=== PATIENT | male | born 1950 | race Caucasian/White ===

== ENCOUNTER 2021-10-07 19:10 | Inpatient (IN) | payer MEDICARE, MEDICAID, SELFPAY ==
[2021-10-07] VITALS (7 sets, daily range): BP systolic 92–114; BP diastolic 58–76; PULSE 98–121; RESP 18–25; TEMP 38.8–41.4; O2SAT 94–98; BMI 34.7
--- NOTE | ~2021-10-07 | CT_ITS ---
EXAMINATION: CT HEAD WITHOUT CONTRAST CLINICAL INFORMATION: Dysphagia. COMPARISON: None available. TECHNIQUE: Contiguous axial imaging was performed from the skull base to vertex without intravenous administration of contrast. This CT examination was performed using dose optimization techniques as appropriate, variously including the following: *Automated exposure control. *Adjustment of mA and/or kV according to patient size (this includes techniques or standardized protocols for targeted exams where dose is matched to indication/reason for exam; i.e. extremities or head). *Use of iterative reconstruction technique. DLP: 925 mGy-cm FINDINGS: Chronic encephalomalacia predominantly involving the right temporal lobe and right insula/lentiform nucleus. There is also a degree of gliosis of the deep white matter of the right frontoparietal lobes. There is a streak of hyperattenuation along the medial margin of this encephalomalacia suggestive of chronic hemosiderin staining. There is a 0.5 cm calcification within the right aspect of the krissy. Wallerian degeneration of the right cerebral peduncle and right ventral krissy. There is no evidence of acute intracranial hemorrhage or edematous territorial infarction. Otherwise, scattered hypoattenuation in the periventricular and deep white matter are consistent with mild to moderate underlying microangiopathy. No additional loss of hobson-white matter differentiation. Ex vacuo dilatation of the right lateral ventricle. Otherwise, proportional prominence of the ventricles and sulcal spaces. No evidence for obstructive hydrocephalus. No abnormal mass effect or midline shift. No extra-axial fluid collections. Calcific atherosclerotic disease of the intracranial internal carotid arteries. No acute soft tissue or osseous abnormalities. Persistent metopic suture. Mild mucosal thickening of the paranasal sinuses. Small mucous retention cyst within the right maxillary sinus. The mastoid air cells and middle ear cavities remain well aerated. CT/CT head/brain wo con IMPRESSION: 1. No evidence of acute intracranial hemorrhage or edematous territorial infarction. 2. Chronic encephalomalacia of a large portion of the right MCA territory (most notably the right temporal lobe and insula with gliosis of the deep white matter of the right frontoparietal lobes). Mild to moderate underlying microangiopathy.
--- NOTE | ~2021-10-07 | US_ITS ---
EXAMINATION: ULTRASOUND LOWER EXTREMITY NONVASCULAR CLINICAL INFORMATION: Left thigh cellulitis. Rule out abscess. COMPARISON: None TECHNIQUE: Grayscale and color imaging of the soft tissues of the left medial thigh using a linear transducer FINDINGS: There is subcutaneous edema. No focal fluid collection or mass is seen. US/US extremity nonvascular IMPRESSION: No focal fluid collection suggestive of abscess. Diffuse subcutaneous edema.
--- NOTE | ~2021-10-07 | US_ITS ---
EXAMINATION: US ABDOMEN LIMITED CLINICAL INFORMATION: Elevated bilirubin with high fever. COMPARISON: None TECHNIQUE: Real-time imaging of the right upper quadrant abdominal viscera. FINDINGS: PANCREAS: The visualized portions of the pancreas are unremarkable but a large portion of the gland is obscured by bowel gas. LIVER: The liver is normal in size. The liver contour is normal. There is mildly diffuse increased liver parenchymal echogenicity raising a question of hepatic steatosis. No focal hepatic lesion. There is no intrahepatic biliary duct dilatation seen. GALLBLADDER: The gallbladder is filled with shadowing stones and echogenic bile. No pericholecystic fluid collections were seen. Ballesteros's sign was negative. COMMON BILE DUCT: Could not be visualized. RIGHT KIDNEY: Not optimally seen. No hydronephrosis. No renal calculi or focal parenchymal lesions. The kidney measures 12.3 cm in maximum dimension. FREE FLUID: None. US/US abdomen limited IMPRESSION: 1. Echogenic liver, most likely hepatic steatosis. 2. Cholelithiasis without cholecystitis.
--- NOTE | ~2021-10-07 | XR_ITS ---
EXAMINATION: XR CHEST CLINICAL INFORMATION: Sepsis COMPARISON: None TECHNIQUE: Frontal view of the chest was obtained. FINDINGS: There is mild cardiac enlargement. There is marked some minimal upper zone prominence suggesting possible mild pulmonary vascular congestion. No focal infiltrates, effusions or lung masses are seen. XR/XR chest 1V IMPRESSION: Mild cardiomegaly with question of mild pulmonary vascular congestion.
--- NOTE | 2021-10-07 19:13 | ECG_ITS ---
Test Reason : ?septic Blood Pressure : / mmHG Vent. Rate : 107 BPM Atrial Rate : 000 BPM P-R Int : 000 ms QRS Dur : 084 ms QT Int : 338 ms P-R-T Axes : 000 006 008 degrees QTc Int : 451 ms Atrial fibrillation with rapid ventricular response Nonspecific ST and T wave abnormality Abnormal ECG No previous ECGs available Referred By: Kusum Parker Electronically Signed By:DENNIS NEWTON
[2021-10-07 19:17] LABS: Glucose, Whole Blood 150 mg/dL (60-115)
--- NOTE | 2021-10-07 19:24 | ED_ITS ---
HPI - General Adult General Chief complaint: Altered Mental Status Stated complaint: lethargy Time Seen by Provider: 10/07/21 19:53 Source: patient, EMS and RN notes reviewed Mode of arrival: EMS Limitations: altered mental status History of Present Illness HPI narrative: 70-year-old male came in from custodial for evaluation of being lethargic and high fever. Patient is a resident of custodial brought in for left thigh area of cellulitis with high fever with patient being lethargic, patient unable to prov xochitl history. Past Medical history was obtained from custodial records vascular dementia with behavior disturbance, bipolar, chronic atrial fibrillation, hypertension, congestive heart failure, dyslipidemia, right MCA stroke in 2013, depression with psychosis, anxiety, history of ETOH abuse. Related Data Home Medications Medication Instructions Recorded Confirmed acetaminophen 500 mg tablet 1,000 mg PO BID 10/07/21 10/07/21 dabigatran etexilate 150 mg 150 mg PO BID 10/07/21 10/07/21 capsule (Pradaxa) famotidine 20 mg tablet 20 mg PO BEDTIME 10/07/21 10/07/21 gabapentin 300 mg capsule 300 mg PO TID 10/07/21 10/07/21 lithium carbonate 300 mg capsule 300 mg PO BEDTIME 10/07/21 10/07/21 lithium carbonate 300 mg capsule 600 mg PO DAILY 10/07/21 10/07/21 lorazepam 0.5 mg tablet 1 tab PO BID 10/07/21 10/07/21 metoprolol succinate 50 mg 50 mg PO DAILY 10/07/21 10/07/21 tablet,extended release 24 hr olanzapine 10 mg tablet 10 mg PO BEDTIME 10/07/21 10/07/21 polyethylene glycol 3350 17 17 g PO BID 10/07/21 10/07/21 gram/dose oral powder (Miralax) sennosides 8.6 mg tablet (senna) 17.2 mg PO BEDTIME 10/07/21 10/07/21 simvastatin 5 mg tablet 5 mg PO BEDTIME 10/07/21 10/07/21 Allergies Allergy/AdvReac Type Severity Reaction Status Date / Time No Known Allergies Allergy Verified 10/07/21 19:13 Review of Systems Review of Systems: Yes Unobtainable due to mental condition (Advanced dementia) FOR[facility]LY [facility] Past Medical History Source: old records reviewed Social History Social History Advance Directives: No Advance Directives Information Provided: No Physical Exam Vital Signs: Vital Signs: Last Vital Signs Temp 101.8 F H 10/07/21 22:32 Pulse 104 H 10/07/21 22:32 Resp 22 H 10/07/21 22:32 BP 111/60 10/07/21 22:32 Pulse Ox 96 10/07/21 22:32 BMI result Body Mass Index 34.7 Vital signs have been reviewed as appeared to be correct. Blood pressure normal. Heart rate normal. Respiration rate normal. Temperature normal. Oxygen saturation normal. Appearance: Lethargic, easily arousable, unable to answer simple questions. Head: Normal external exam. Normocephalic. Atraumatic. No Juan signs noted. No raccoon eyes noted Eyes: PERRLA. EOMI. Conjunctiva and sclera normal. Eyelids normal. ENT: TM's Normal. Pharynx normal. Uvula midline. Moist mucous membranes. No trismus noted. No drooling noted. No muffled voice noted. Neck: Normal inspection. Neck supple. FROM. No adenopathy. Thyroid Normal. No meningeal signs. No neck mass noted. CVS: Normal heart rate and rhythm. Heart sound normal. No murmurs noted. Pulses normal throughout. Respiratory: No respiratory distress. Painless inspiration. Breath sounds normal. No wheezes/rales/rhonchi noted. Chest nontender. No accessory muscle usage noted or decreased air movement noted. Abdomen: Soft and nontender. Bowel sounds normal in all 4 quadrants. No distention noted. No organomegaly noted. No visible injury noted. Back: No CVA tenderness. Full range of motion noted. Skin: Skin warm and dry. Normal skin color. Normal skin turgor. No rashes/lesions/lacerations noted. Extremities: Area of 20 x 15 cm of hotness, redness, erythematous on the inner aspect of the left thigh, no abscess or fluctuation. Neuro: Lethargic, incoherent. Cranial nerve exam: II-XII are grossly intact No motor deficit. No sensory deficit. Reflexes normal. Course Course Course Narrative: Assessment and plan. 70-year-old male came in for left thigh cellulitis with SIRS criteria and hyperpyrexia, because patient's lactic acid above to patient enrolled into severe sepsis. patient received IV antibiotic and 30 cc/kg based on ideal body weight. Improvement of body temperature. With slight elevation of bilirubin will obtain gallbladder ultrasound, patient however do not have right upper quadrant tenderness. Reevaluation(s) Reevaluation #1: Reassessment: Patient is less febrile temperature and lactic acid are trending down. Patient is more coherent. Ultrasound of the abdomen and pelvis showing no acute cholecystitis. Time: 23:08 Medical Decision Making Medical Records Medical records reviewed: Yes I reviewed the patient's medical records. Lab Data Lab results reviewed: Yes I reviewed the patient's lab results. Result diagrams: 10/07/21 19:28 10/07/21 19:28 Labs: Lab Results 10/07/21 10/07/21 10/07/21 Range/Units 19:14 19:28 19:28 WBC 17.0 H (4.8-10.8) X10*3/uL RBC 5.35 (4.60-5.80) X10*6/uL Hgb 16.6 (14.0-18.0) g/dl Hct 49.9 (42.0-52.0) % MCV 93.3 (80.0-98.0) fL MCH 31.0 (27.0-33.0) pg MCHC 33.3 (31.0-36.0) g/dl RDW 12.4 (11.0-16.0) % Plt Count 153 L (160-400) X10*3/uL MPV 9.8 (9.4-12.4) fL Immature Gran % (Auto) 0.9 H (0.0-0.4) % Neut % (Auto) 90.4 H (45-73) % Lymph % (Auto) 3.2 L (20-40) % [place] % (Auto) 5.4 (2-11) % Eos % (Auto) 0.0 (0-4) % Baso % (Auto) 0.1 (0-2) % Lymph # (Auto) 0.6 L (1.2-4.9) X10*3/uL [place] # (Auto) 0.9 (0.1-1.2) X10*3/uL Eos # (Auto) 0.0 (0.0-0.4) X10*3/uL Baso # (Auto) 0.0 (0.0-0.2) X10*3/uL Abs Immat Gran (auto) 0.15 H (0.00-0.03) X10*3/uL Absolute Neuts (auto) 15.4 H (2.0-8.3) x10*3/uL Absolute Nucleated RBC 0.000 (0.0-0.012) X10*3/uL Nucleated RBC % (auto) 0.0 (0.0-0.2) /100WBC PT (9.9-13.0) SEC INR (0.9-1.1) APTT (24.1-38.0) SEC Sodium 142 (135-145) mmol/L Potassium 4.4 (3.3-5.1) mmol/L Chloride 105 (96-108) mmol/L Carbon Dioxide 25 (22-29) mmol/L Anion Gap 16 (12-20) BUN 18 H (9-16) mg/dL Creatinine 1.11 (0.5-1.4) mg/dL Estim Creat Clear Calc 84.8 Estimated GFR > 60 POC Glucose 150 H (60-115) mg/dL Random Glucose 165 H (60-115) mg/dL Lactic Acid (0.5-2.0) mmol/L Calcium 9.8 (8.4-10.2) mg/dL Total Bilirubin 1.1 H (0.0-1.0) mg/dL Direct Bilirubin 0.6 H (0.0-0.5) mg/dL AST 12 (5-37) U/L ALT 12 (0-40) U/L Alkaline Phosphatase 74 (39-117) U/L Troponin I High Sens (<3.5-35.0) ng/L B-Natriuretic Peptide (<100) pg/mL Total Protein 7.7 (6.5-8.0) g/dL Albumin 4.2 (3.5-5.0) g/dL Lipase 22 (8-78) U/L Urine Color Urine Appearance Urine pH (5.0-8.0) Ur Specific [place] (1.005-1.025) Urine Protein (NEG-TRACE) MG/DL Urine Glucose (UA) (NEG) MG/DL Urine Ketones (NEG) MG/DL Urine Blood (NEG) Urine Nitrite (NEG) Ur Leukocyte Esterase (NEG) Urine RBC (0) /HPF Urine WBC (0-4) /HPF Ur Squamous Epith Cells /LPF Urine Bacteria /LPF Urine Mucus /LPF COVID-19 ([facility]) (Negative) COVID-19 Clin Com 10/07/21 10/07/21 10/07/21 Range/Units 19:28 19:28 19:28 WBC (4.8-10.8) X10*3/uL RBC (4.60-5.80) X10*6/uL Hgb (14.0-18.0) g/dl Hct (42.0-52.0) % MCV (80.0-98.0) fL MCH (27.0-33.0) pg MCHC (31.0-36.0) g/dl RDW (11.0-16.0) % Plt Count (160-400) X10*3/uL MPV (9.4-12.4) fL Immature Gran % (Auto) (0.0-0.4) % Neut % (Auto) (45-73) % Lymph % (Auto) (20-40) % [place] % (Auto) (2-11) % Eos % (Auto) (0-4) % Baso % (Auto) (0-2) % Lymph # (Auto) (1.2-4.9) X10*3/uL [place] # (Auto) (0.1-1.2) X10*3/uL Eos # (Auto) (0.0-0.4) X10*3/uL Baso # (Auto) (0.0-0.2) X10*3/uL Abs Immat Gran (auto) (0.00-0.03) X10*3/uL Absolute Neuts (auto) (2.0-8.3) x10*3/uL Absolute Nucleated RBC (0.0-0.012) X10*3/uL Nucleated RBC % (auto) (0.0-0.2) /100WBC PT (9.9-13.0) SEC INR (0.9-1.1) APTT (24.1-38.0) SEC Sodium (135-145) mmol/L Potassium (3.3-5.1) mmol/L Chloride (96-108) mmol/L Carbon Dioxide (22-29) mmol/L Anion Gap (12-20) BUN (9-16) mg/dL Creatinine (0.5-1.4) mg/dL Estim Creat Clear Calc Estimated GFR POC Glucose (60-115) mg/dL Random Glucose (60-115) mg/dL Lactic Acid 3.3 H* (0.5-2.0) mmol/L Calcium (8.4-10.2) mg/dL Total Bilirubin (0.0-1.0) mg/dL Direct Bilirubin (0.0-0.5) mg/dL AST (5-37) U/L ALT (0-40) U/L Alkaline Phosphatase (39-117) U/L Troponin I High Sens 8.0 (<3.5-35.0) ng/L B-Natriuretic Peptide 165 H (<100) pg/mL Total Protein (6.5-8.0) g/dL Albumin (3.5-5.0) g/dL Lipase (8-78) U/L Urine Color Urine Appearance Urine pH (5.0-8.0) Ur Specific [place] (1.005-1.025) Urine Protein (NEG-TRACE) MG/DL Urine Glucose (UA) (NEG) MG/DL Urine Ketones (NEG) MG/DL Urine Blood (NEG) Urine Nitrite (NEG) Ur Leukocyte Esterase (NEG) Urine RBC (0) /HPF Urine WBC (0-4) /HPF Ur Squamous Epith Cells /LPF Urine Bacteria /LPF Urine Mucus /LPF COVID-19 ([facility]) Negative (Negative) COVID-19 Clin Com See Note 10/07/21 10/07/21 Range/Units 19:28 19:50 WBC (4.8-10.8) X10*3/uL RBC (4.60-5.80) X10*6/uL Hgb (14.0-18.0) g/dl Hct (42.0-52.0) % MCV (80.0-98.0) fL MCH (27.0-33.0) pg MCHC (31.0-36.0) g/dl RDW (11.0-16.0) % Plt Count (160-400) X10*3/uL MPV (9.4-12.4) fL Immature Gran % (Auto) (0.0-0.4) % Neut % (Auto) (45-73) % Lymph % (Auto) (20-40) % [place] % (Auto) (2-11) % Eos % (Auto) (0-4) % Baso % (Auto) (0-2) % Lymph # (Auto) (1.2-4.9) X10*3/uL [place] # (Auto) (0.1-1.2) X10*3/uL Eos # (Auto) (0.0-0.4) X10*3/uL Baso # (Auto) (0.0-0.2) X10*3/uL Abs Immat Gran (auto) (0.00-0.03) X10*3/uL Absolute Neuts (auto) (2.0-8.3) x10*3/uL Absolute Nucleated RBC (0.0-0.012) X10*3/uL Nucleated RBC % (auto) (0.0-0.2) /100WBC PT 17.8 H (9.9-13.0) SEC INR 1.6 H (0.9-1.1) APTT 42.1 H (24.1-38.0) SEC Sodium (135-145) mmol/L Potassium (3.3-5.1) mmol/L Chloride (96-108) mmol/L Carbon Dioxide (22-29) mmol/L Anion Gap (12-20) BUN (9-16) mg/dL Creatinine (0.5-1.4) mg/dL Estim Creat Clear Calc Estimated GFR POC Glucose (60-115) mg/dL Random Glucose (60-115) mg/dL Lactic Acid (0.5-2.0) mmol/L Calcium (8.4-10.2) mg/dL Total Bilirubin (0.0-1.0) mg/dL Direct Bilirubin (0.0-0.5) mg/dL AST (5-37) U/L ALT (0-40) U/L Alkaline Phosphatase (39-117) U/L Troponin I High Sens (<3.5-35.0) ng/L B-Natriuretic Peptide (<100) pg/mL Total Protein (6.5-8.0) g/dL Albumin (3.5-5.0) g/dL Lipase (8-78) U/L Urine Color DK YELLOW Urine Appearance CLEAR Urine pH 6.0 (5.0-8.0) Ur Specific [place] 1.025 (1.005-1.025) Urine Protein TRACE (NEG-TRACE) MG/DL Urine Glucose (UA) NEG (NEG) MG/DL Urine Ketones 15 (NEG) MG/DL Urine Blood 2+ H (NEG) Urine Nitrite NEG (NEG) Ur Leukocyte Esterase NEG (NEG) Urine RBC 5-9 H (0) /HPF Urine WBC 0-2 (0-4) /HPF Ur Squamous Epith Cells NONE /LPF Urine Bacteria TRACE /LPF Urine Mucus 1+ /LPF COVID-19 ([facility]) (Negative) COVID-19 Clin Com Imaging Data Chest x-ray: Attestation: I personally reviewed and interpreted this imaging study as follows: Radiologist's impression: Mild cardiomegaly with question of mild pulmonary vascular congestion. ? Gallbladder ultrasound: Attestation: I personally reviewed and interpreted this imaging study as follows: Radiologist's impression: 1. Echogenic liver, most likely hepatic st eatosis. ?2. Cholelithiasis without cholecystitis. ECG Data Attestation: I personally reviewed and interpreted this ECG as follows: Interpretation: Atrial fibrillation at rate of 107, normal intervals, no ST-T changes. Discharge Plan Discharge Clinical Impression: Altered mental status, Cellulitis, Severe sepsis Patient Disposition: Admitted As Inpatient
[2021-10-07 19:35] LABS: MANUAL DIFF FLAG NO
[2021-10-07 19:39] LABS: Basophils Percent Auto 0.1 % (0-2); Hematocrit 49.9 % (42.0-52.0); Hemoglobin 16.6 g/dl (14.0-18.0); Imm Gran Abs Auto 0.15 X10*3/uL (0.00-0.03); Imm Gran Pct Auto 0.9 % (0.0-0.4); Lymphocytes Absolute Auto 0.6 X10*3/uL (1.2-4.9); Lymphocytes Percent Auto 3.2 % (20-40); Mean Corpuscular HGB Conc 33.3 g/dl (31.0-36.0); Mean Corpuscular Volume 93.3 fL (80.0-98.0); Mean Platelet Volume 9.8 fL (9.4-12.4); Monocytes Absolute Auto 0.9 X10*3/uL (0.1-1.2); Monocytes Percent Auto 5.4 % (2-11); Neutrophils Absolute Auto 15.4 x10*3/uL (2.0-8.3); Neutrophils Percent Auto 90.4 % (45-73); Platelet Count 153 X10*3/uL (160-400); Red Blood Count 5.35 X10*6/uL (4.60-5.80); Red Cell Distribution Width 12.4 % (11.0-16.0); SCAN SMEAR FLAG 1
[2021-10-07] MEDS: Piperacillin Sodium/Tazobactam 4.5 GM in 0.9 % Sodium Chloride 100 ML IV (19:40)
[2021-10-07] MEDS: Acetaminophen Supp 650 MG SUPP.RECT PR (19:41)
[2021-10-07 19:45] LABS: INTERNATIONAL NORM RATIO 1.6 (0.9-1.1); Prothrombin Time 17.8 SEC (9.9-13.0)
[2021-10-07 19:48] LABS: Partial Thromboplastin Time 42.1 SEC (24.1-38.0)
[2021-10-07 19:55] LABS: Lactic Acid 3.3 mmol/L (0.5-2.0)
--- NOTE | 2021-10-07 19:55 | PC.NURSE ---
Large reddened hot rash noted to left inner thigh. Small open blister to left inner thigh.
[2021-10-07] MEDS: 0.9 % Sodium Chloride 2,466 ML 2466 ML IV (19:56)
[2021-10-07 19:58] LABS: Alanine Aminotransferase 12 U/L (0-40); Albumin Level 4.2 g/dL (3.5-5.0); Alkaline Phosphatase 74 U/L (39-117); Anion Gap 16 (12-20); Aspartate Amino Transferase 12 U/L (5-37); Bilirubin Direct 0.6 mg/dL (0.0-0.5); Bilirubin Total 1.1 mg/dL (0.0-1.0); Blood Urea Nitrogen 18 mg/dL (9-16); Calcium 9.8 mg/dL (8.4-10.2); Carbon Dioxide 25 mmol/L (22-29); Chloride 105 mmol/L (96-108); Creatinine Clr Calc Pharmacy 84.8; Estimated Glomerular Filt Rate > 60; Glucose Random 165 mg/dL (60-115); Lipase 22 U/L (8-78); Potassium 4.4 mmol/L (3.3-5.1); Sodium 142 mmol/L (135-145); Total Protein 7.7 g/dL (6.5-8.0)
[2021-10-07 19:59] LABS: B Type Natriuretic Peptide 165 pg/mL (<100)
[2021-10-07 20:01] LABS: COVID-19 Test Negative (Negative); IDNOW Serial# 9DD0AD1C
[2021-10-07 20:22] LABS: Appearance Urine CLEAR; Color Urine DK YELLOW; Glucose Urine UA NEG (NEG); Leukocyte Esterase Urine NEG (NEG); Nitrite Urine NEG (NEG); Specific Gravity - Urine 1.025 (1.005-1.025); UACC Culture Trigger NO; Urine Blood 2+ (NEG); Urine Ketones 15 MG/DL (NEG); Urine Protein TRACE MG/DL (NEG-TRACE)
[2021-10-07 20:32] LABS: Bacteria Urine TRACE /LPF; Mucus Urine 1+ /LPF; WBC Urine 0-2 /HPF (0-4)
--- NOTE | 2021-10-07 21:05 | PHA.MEDREC ---
Pharmacy Consult ? Medication Reconciliation Pharmacy has completed the medication reconciliation.
[2021-10-07 21:34] LABS: Reflex Lactate? Lactic Acid Added
--- NOTE | 2021-10-07 21:34 | P.HPHOSP_ITS ---
History of Present Illness Date of Service: 10/07/21 Chief Complaint: Fever 70-year-old male with a past medical history of hypertension, CAD, CHF, chronic AFib on Pradaxa, vascular dementia with behavior disorder, bipolar, depression with psychosis, anxiety, history of right MCA stroke in 2014, history of alcohol abuse; presented to the hospital with a chief complaint of altered mental status/fever/lethargy. Patient is a poor historian, drowsy, dementia. Most of the history obtained from the records and the ER staff. Reportedly patient [facility] from the [facility] because patient was drowsy and lethargic had a fever and more confused than baseline; patient on presentation noted to be febrile; Patient follows verbal commands; denies any chest pain palpitations lightheadedness or dizziness. Denies any cough. Review of all other systems is limited ER course: Per ER team patient noted to have temperature of 103? F; tachycardic, lactic acidosis, soft blood pressures; concern for severe sepsis; exam noted to have left thigh cellulitis; given IV fluids at 30 mL per kg; given IV antibiotics; chest x-ray showed no acute findings; UA showed microscopic hematuria. Admitted to the hospital for further management PMFSH Social History Advance Directives: No Advance Directives Information Provided: No Meds Allergies Allergy/AdvReac Type Severity Reaction Status Date / Time No Known Allergies Allergy Verified 10/07/21 19:13 Active Medications: Current Medications Acetaminophen (Acetaminophen 325 Mg Tablet) 650 mg PO Q6H PRN PRN Reason: Pain, Mild (Pain Scale 1-3) Dabigatran (Dabigatran Etexilate Mesylate 150 Mg Capsule) 150 mg PO BID EVGENY Famotidine (Famotidine 20 Mg Tablet) 20 mg PO BEDTIME EVGENY Gabapentin (Gabapentin 300 Mg Capsule) 300 mg PO TID EVGENY Vancomycin HCl 2,000 mg/ (Sodium Chloride) 540 mls @ 270 mls/hr IV ONCE ONE Stop: 10/07/21 21:59 Last Admin: 10/07/21 19:33 Dose: 270 mls/hr Documented by: Vancomycin HCl 1,000 mg/ (Sodium Chloride) 270 mls @ 270 mls/hr IV Q12H EVGENY Piperacillin Sod/Tazobactam (Sod 3.375 gm/ Sodium Chloride) 50 mls @ 100 mls/hr IV Q6H EVGENY [place] Carbonate ([place] Carbonate 300 Mg Capsule) 300 mg PO BEDTIME [facility] [place] Carbonate ([place] Carbonate 300 Mg Capsule) 600 mg PO DAILY [facility] Lorazepam (Lorazepam 0.5 Mg Tablet) 0.5 mg PO BID [facility] Melatonin (Melatonin 3 Mg Tablet) 6 mg PO BEDTIME PRN PRN Reason: Insomnia Metoprolol Succinate (Metoprolol Succinate Er 50 Mg Tab.Er.24h) 50 mg PO DAILY [facility]; Protocol Olanzapine (Olanzapine 10 Mg Tablet) 10 mg PO BEDTIME [facility] Pharmacy Consult (Consult Rx Perform Med Rec) 1 each MISCELLANE ONCE PRN PRN Reason: Consult order Pharmacy Consult (Consult Rx Vancomycin Dosing) 1 each MISCELLANE DAILY PRN PRN Reason: Consult order Pharmacy Consult (Consult Rx Vancomycin Dosing) 1 each MISCELLANE DAILY PRN PRN Reason: Consult order Polyethylene Glycol (Polyethylene Glycol 3350 17 Gm Powd.Pack) 17 gm PO BID [facility] Senna (Sennosides 8.6 Mg Tablet) 17.2 mg PO BEDTIME PRN PRN Reason: Constipation Sodium Chloride (0.9 % Sodium Chloride Flush 3 Ml Syringe) 3 ml IVFLUSH QSHIFT [facility] Home Medications Medication Instructions Recorded Confirmed Last Taken Type acetaminophen 500 mg tablet 1,000 mg PO BID 10/07/21 10/07/21 10/07/21 History dabigatran etexilate 150 mg 150 mg PO BID 10/07/21 10/07/21 10/07/21 History capsule (Pradaxa) famotidine 20 mg tablet 20 mg PO BEDTIME 10/07/21 10/07/21 10/06/21 History gabapentin 300 mg capsule 300 mg PO TID 10/07/21 10/07/21 10/07/21 History lithium carbonate 300 mg capsule 300 mg PO BEDTIME 10/07/21 10/07/21 10/06/21 History lithium carbonate 300 mg capsule 600 mg PO DAILY 10/07/21 10/07/21 10/07/21 History lorazepam 0.5 mg tablet 1 tab PO BID 10/07/21 10/07/21 10/07/21 History metoprolol succinate 50 mg 50 mg PO DAILY 10/07/21 10/07/21 10/07/21 History tablet,extended release 24 hr olanzapine 10 mg tablet 10 mg PO BEDTIME 10/07/21 10/07/21 10/06/21 History polyethylene glycol 3350 17 17 g PO BID 10/07/21 10/07/21 10/07/21 History gram/dose oral powder (Miralax) sennosides 8.6 mg tablet (senna) 17.2 mg PO BEDTIME 10/07/21 10/07/21 10/06/21 History simvastatin 5 mg tablet 5 mg PO BEDTIME 10/07/21 10/07/21 10/06/21 History Physical Exam Vital Signs and Narrative: Vital Signs: Last Vital Signs Temp 103.5 F H 10/07/21 20:38 Pulse 120 H 10/07/21 20:38 Resp 20 10/07/21 20:38 BP 101/59 L 10/07/21 20:38 Pulse Ox 98 10/07/21 20:38 BMI result Body Mass Index 34.7 Gen: Appears be in no acute distress HEENT: NCAT, Moist mucosa. Pulmonary: Fine crackles at the bases CVS: Normal S1-S2 Abdomen: BS+, Soft, Nontender Extremities: Warm well perfused; warm , erythematous, tenderness noted on the medial side of the left thigh-concerning for cellulitis Neuro: Drowsy, following verbal commands Results Labs CBC and Chem 7: 10/07/21 19:28 10/07/21 19:28 Labs: Laboratory Results - last 24 hr 10/07/21 10/07/21 10/07/21 19:14 19:28 19:28 MCV 93.3 MCH 31.0 MCHC 33.3 RDW 12.4 Plt Count 153 L MPV 9.8 Immature Gran % (Auto) 0.9 H Neut % (Auto) 90.4 H Lymph % (Auto) 3.2 L [place] % (Auto) 5.4 Eos % (Auto) 0.0 Baso % (Auto) 0.1 Lymph # (Auto) 0.6 L [place] # (Auto) 0.9 Eos # (Auto) 0.0 Baso # (Auto) 0.0 Abs Immat Gran (auto) 0.15 H Absolute Neuts (auto) 15.4 H Absolute Nucleated RBC 0.000 Nucleated RBC % (auto) 0.0 PT INR APTT Anion Gap 16 Estim Creat Clear Calc 84.8 Estimated GFR > 60 POC Glucose 150 H Random Glucose 165 H Lactic Acid Calcium 9.8 Total Bilirubin 1.1 H Direct Bilirubin 0.6 H AST 12 ALT 12 Alkaline Phosphatase 74 Troponin I High Sens B-Natriuretic Peptide Total Protein 7.7 Albumin 4.2 Lipase 22 Urine Color Urine Appearance Urine pH Ur Specific [place] Urine Protein Urine Glucose (UA) Urine Ketones Urine Blood Urine Nitrite Ur Leukocyte Esterase Urine RBC Urine WBC Ur Squamous Epith Cells Urine Bacteria Urine Mucus COVID-19 ([facility]) COVID-19 Clin Com 10/07/21 10/07/21 10/07/21 19:28 19:28 19:28 MCV MCH MCHC RDW Plt Count MPV Immature Gran % (Auto) Neut % (Auto) Lymph % (Auto) [place] % (Auto) Eos % (Auto) Baso % (Auto) Lymph # (Auto) [place] # (Auto) Eos # (Auto) Baso # (Auto) Abs Immat Gran (auto) Absolute Neuts (auto) Absolute Nucleated RBC Nucleated RBC % (auto) PT INR APTT Anion Gap Estim Creat Clear Calc Estimated GFR POC Glucose Random Glucose Lactic Acid 3.3 H* Calcium Total Bilirubin Direct Bilirubin AST ALT Alkaline Phosphatase Troponin I High Sens 8.0 B-Natriuretic Peptide 165 H Total Protein Albumin Lipase Urine Color Urine Appearance Urine pH Ur Specific [place] Urine Protein Urine Glucose (UA) Urine Ketones Urine Blood Urine Nitrite Ur Leukocyte Esterase Urine RBC Urine WBC Ur Squamous Epith Cells Urine Bacteria Urine Mucus COVID-19 ([facility]) Negative COVID-19 Clin Com See Note 10/07/21 10/07/21 19:28 19:50 MCV MCH MCHC RDW Plt Count MPV Immature Gran % (Auto) Neut % (Auto) Lymph % (Auto) [place] % (Auto) Eos % (Auto) Baso % (Auto) Lymph # (Auto) [place] # (Auto) Eos # (Auto) Baso # (Auto) Abs Immat Gran (auto) Absolute Neuts (auto) Absolute Nucleated RBC Nucleated RBC % (auto) PT 17.8 H INR 1.6 H APTT 42.1 H Anion Gap Estim Creat Clear Calc Estimated GFR POC Glucose Random Glucose Lactic Acid Calcium Total Bilirubin Direct Bilirubin AST ALT Alkaline Phosphatase Troponin I High Sens B-Natriuretic Peptide Total Protein Albumin Lipase Urine Color DK YELLOW Urine Appearance CLEAR Urine pH 6.0 Ur Specific [place] 1.025 Urine Protein TRACE Urine Glucose (UA) NEG Urine Ketones 15 Urine Blood 2+ H Urine Nitrite NEG Ur Leukocyte Esterase NEG Urine RBC 5-9 H Urine WBC 0-2 Ur Squamous Epith Cells NONE Urine Bacteria TRACE Urine Mucus 1+ COVID-19 ([facility]) COVID-19 Clin Com Imaging Radiologist's Impressions: Impressions Chest X-Ray 10/07/21 20:00 IMPRESSION: Mild cardiomegaly with question of mild pulmonary vascular congestion. Assessment and Plan (1) Altered mental status: Status: Acute (2) Cellulitis: Status: Acute (3) Severe sepsis: Status: Acute 70-year-old male with a past medical history of hypertension, CAD, CHF, chronic AFib on Pradaxa, vascular dementia with behavior disorder, bipolar, depression with psychosis, anxiety, history of right MCA stroke in 2014, history of alcohol abuse; presented to the hospital with a chief complaint of altered mental status/fever/lethargy. Noted to have following Altered mental status: Toxic metabolic encephalopathy. Patient has baseline dementia. Supportive care. Speech and swallow eval. Aspiration precautions and fall precautions. Patient is currently drowsy but arousable. Follows simple verbal commands. Severe sepsis: Secondary to left thigh cellulitis. Continue broad-spectrum antibiotics IV vancomycin and Zosyn. Follow up cultures. COVID-19 negative. Microscopic hematuria: May consider repeating urinalysis after hydration tomorrow to ensure improvement. History of CHF: Chest x-ray showed mild congestion. Patient currently breathing comfortably on room air. Patient received IV fluids. Will monitor respiratory status. Patient not on diuretics at home. Holding of diuretics for now given soft blood pressure. History of AFib: Rate controlled. Continue home metoprolol, Pradaxa. History of anxiety/depression with psychosis/dementia with behavioral disturbance: Patient on lithium, Ativan, olanzapine at a [facility]. Will continue. DVT prophylaxis: Patient on Pradaxa Code status: DNI only. Attempt resuscitation Quality Stroke Does the patient have a stroke diagnosis?: No VTE Prior VTE?: No VTE Risk Level:: Medical - moderate - high VTE Device Contraindication: Treatment Not Indicated VTE Drug Contraindication: N/A - Med Ordered
--- NOTE | 2021-10-07 21:52 | PHA.PROG ---
Admission Date/Time: October 07, 2021 21:27 Indication:Cellulitis, septic Weight in k.47 kg Adjusted body weight in K kg [place] body weight in K.2 kg Obesity Dosing Indication % IBW: 148 % Serum Creatinine - Last 168 Hours 10/07/21 19:28 Creatinine 1.11 Estimated CrCl and GFR - Last 168 Hours 10/07/21 19:28 Estim Creat Clear Calc 84.8 Estimated GFR > 60 Vancomycin Loading Dose: 2000 mg Current Vancomycin Dosing Regimen: 1750 mg Q24H Date and Time for next Vancomycin Level to be drawn: 10/09 @ 1700 Pharmacist Comments on Vancomycin Plan: Loading dose of vancomycin 2000 mg (16 mg/kg) was given 10/07 @ 1933. Will start maitenance dose of 1750 mg (14 mg/kg) Q24H 10/08 @ 1900. Per insight, the predicted AUC using the obese model will be 550 while the normal model predicts an AUC of 428. Both are safe and therapeutic levels. Vancomycin can be unpredictable in obese patients. Due to older age as well as obesity we will draw a random vanco level prior to the 3rd dose as a safety precaution. Pharmacy will monitor renal function daily Catherine Samson PharmD Vancomycin dosing will take advantage of [employer] as a clinical decision support tool that uses Bayesian modeling to calculate individual patient's pharmacokinetic parameters and forecast the patient's drug concentration time course with the target goal AUC 24 range of 400 - 600 mg/L/hr.
[2021-10-07 22:24] LABS: ~Lactic Acid-LAB USE ONLY 2.9 mmol/L (0.5-2.0)
[2021-10-08] VITALS (8 sets, daily range): BP systolic 99–105; BP diastolic 57–71; PULSE 77–92; RESP 18–26; TEMP 36.6–39.6; O2SAT 96–98
[2021-10-08 00:05] LABS: Reflex Lactate? 2 Y
[2021-10-08] MEDS: 0.9 % Sodium Chloride Flush 3 ML SYRINGE IVFLUSH ×2 (01:14→10:01)
[2021-10-08] MEDS: Piperacillin Sodium/Tazobactam 4.5 GM in 0.9 % Sodium Chloride 100 ML IV ×4 (02:29→22:30)
[2021-10-08 05:13] LABS: Basophils Percent Auto 0.2 % (0-2); Eosinophils Absolute Auto 0.2 X10*3/uL (0.0-0.4); Eosinophils Percent Auto 0.8 % (0-4); Hematocrit 45.5 % (42.0-52.0); Imm Gran Abs Auto 0.21 X10*3/uL (0.00-0.03); Imm Gran Pct Auto 1.1 % (0.0-0.4); Lymphocytes Absolute Auto 0.8 X10*3/uL (1.2-4.9); Lymphocytes Percent Auto 4.1 % (20-40); MANUAL DIFF FLAG NO; Mean Corpuscular Hemoglobin 30.7 pg (27.0-33.0); Mean Corpuscular Volume 93.2 fL (80.0-98.0); Monocytes Absolute Auto 1.2 X10*3/uL (0.1-1.2); Monocytes Percent Auto 6.3 % (2-11); Neutrophils Absolute Auto 17.4 x10*3/uL (2.0-8.3); Neutrophils Percent Auto 87.5 % (45-73); Platelet Count 134 X10*3/uL (160-400); Red Blood Count 4.88 X10*6/uL (4.60-5.80); Red Cell Distribution Width 12.7 % (11.0-16.0); White Blood Count 19.8 X10*3/uL (4.8-10.8)
[2021-10-08 05:35] LABS: Anion Gap 14 (12-20); Blood Urea Nitrogen 18 mg/dL (9-16); Calcium 8.5 mg/dL (8.4-10.2); Carbon Dioxide 21 mmol/L (22-29); Chloride 110 mmol/L (96-108); Estimated Glomerular Filt Rate > 60; Glucose Random 156 mg/dL (60-115); Potassium 4.2 mmol/L (3.3-5.1); Sodium 141 mmol/L (135-145)
[2021-10-08] MEDS: Acetaminophen Supp 650 MG SUPP.RECT PR ×2 (05:49→12:32)
[2021-10-08 05:54] LABS: ~Lactic Acid-LAB USE ONLY 2.9 mmol/L (0.5-2.0)
--- NOTE | 2021-10-08 05:58 | PC.NURSE ---
Pt resting on stretcher in NAD, breathing with ease on RA, VSS. Pt alert, offers no complaints of pain/discomfort. Pt medicated with tylenol suppository for fever 103.[address] Cameron aware. Stretcher in lowest locked position, rails raised, call olivares within reach.
--- NOTE | 2021-10-08 06:42 | PC.NURSE ---
awaiting arrival of d5ns to dept for admin
[2021-10-08] MEDS: Dextrose 5 % and 0.9 % NaCl 1,000 ML 50 ML IVCONT (10:03)
[2021-10-08] MEDS: Gabapentin 300 MG CAPSULE PO ×3 (10:05→20:27)
[2021-10-08] MEDS: Lithium Carbonate 300 MG CAPSULE 600 MG PO (10:06)
--- NOTE | 2021-10-08 10:16 | PC.NURSE ---
Pt awakes to voice, alert and oriented x 3, speech is mumbled but pt answers appropriately. Left leg noted with cellulitic area, red and warm to touch, pain with palpation to area 8/10 per pt. Core temp trended down and 100.4 at this time. BP remains soft, Metoprolol held as long as well as Ativan for drowsiness and Miralax held as pt is NPO pending speech. Fluids started and medicated as charted.
[2021-10-08] MEDS: Dabigatran Etexilate Mesylate 150 MG CAPSULE PO ×2 (10:20→22:17)
--- NOTE | 2021-10-08 14:18 | P.PNIM_ITS ---
Subjective Subjective Date of Service: 10/09/21 Interval History: f/u on sepsis, metabolic encephalopathy, more alert than previously described. Review of Systems no fever, confusion Physical Exam Vital Signs: Vital Signs: Last Vital Signs Temp 100.4 F 10/08/21 10:11 Pulse 86 10/08/21 10:11 Resp 22 H 10/08/21 10:11 BP 102/67 10/08/21 10:11 Pulse Ox 98 10/08/21 10:11 BMI result Body Mass Index 34.7 Const: Other: General: confused Resp: CTA bilateral CVS: S1,S2,RRR GI: +BS, NT, no distention Skin: No rash Neuro: motor grossly intact Psych: appropriate affect Objective Data Active Medications Acetaminophen (Acetaminophen 325 Mg Tablet) 650 mg PO Q6H PRN PRN Reason: Pain, Mild (Pain Scale 1-3) Acetaminophen (Acetaminophen Supp 650 Mg Supp.Rect) 650 mg TN Q6H PRN PRN Reason: Fever Last Admin: 10/08/21 12:32 Dose: 650 mg Documented by: VITALY Dabigatran (Dabigatran Etexilate Mesylate 150 Mg Capsule) 150 mg PO BID [facility] Last Admin: 10/08/21 10:20 Dose: 150 mg Documented by: VITALY Famotidine (Famotidine 20 Mg Tablet) 20 mg PO BEDTIME [facility] Gabapentin (Gabapentin 300 Mg Capsule) 300 mg PO TID [facility] Last Admin: 10/08/21 10:05 Dose: 300 mg Documented by: VITALY Piperacillin Sod/Tazobactam (Sod 4.5 gm/ Sodium Chloride) 100 mls @ 200 mls/hr IV Q6H [facility] Last Infusion: 10/08/21 11:10 Dose: 0 mls/hr Documented by: VITALY Vancomycin HCl 1,000 mg/Vancomycin HCl 750 mg/ Sodium Chloride 535 mls @ 267.5 mls/hr IV Q24H [facility] Dextrose/Sodium Chloride (D5ns) 1,000 mls @ 50 mls/hr IVCONT .Q20H [facility] Last Admin: 10/08/21 10:03 Dose: 50 mls/hr Documented by: VITALY [place] Carbonate ([place] Carbonate 300 Mg Capsule) 300 mg PO BEDTIME [facility] [place] Carbonate ([place] Carbonate 300 Mg Capsule) 600 mg PO DAILY [facility] Last Admin: 10/08/21 10:06 Dose: 600 mg Documented by: VITALY Lorazepam (Lorazepam 0.5 Mg Tablet) 0.5 mg PO BID [facility] Last Admin: 10/08/21 10:07 Dose: Not Given Documented by: VITALY Non-Admin Reason: pt drowsy Melatonin (Melatonin 3 Mg Tablet) 6 mg PO BEDTIME PRN PRN Reason: Insomnia Metoprolol Succinate (Metoprolol Succinate Er 50 Mg Tab.Er.24h) 50 mg PO DAILY [facility]; Protocol Last Admin: 10/08/21 10:07 Dose: Not Given Documented by: VITALY Non-Admin Reason: Decreased Blood Pressure Olanzapine (Olanzapine 10 Mg Tablet) 10 mg PO BEDTIME [facility] Pharmacy Consult (Consult Rx Perform Med Rec) 1 each MISCELLANE ONCE PRN PRN Reason: Consult order Pharmacy Consult (Consult Rx Vancomycin Dosing) 1 each MISCELLANE DAILY PRN PRN Reason: Consult order Pharmacy Consult (Consult Rx Vancomycin Dosing) 1 each MISCELLANE DAILY PRN PRN Reason: Consult order Polyethylene Glycol (Polyethylene Glycol 3350 17 Gm Powd.Pack) 17 gm PO BID [facility] Last Admin: 10/08/21 10:13 Dose: Not Given Documented by: VITALY Non-Admin Reason: NPO Senna (Sennosides 8.6 Mg Tablet) 17.2 mg PO BEDTIME PRN PRN Reason: Constipation Sodium Chloride (0.9 % Sodium Chloride Flush 3 Ml Syringe) 3 ml IVFLUSH QSHIFT [facility] Last Admin: 10/08/21 10:01 Dose: 3 ml Documented by: VITALY Labs CBC & Chem 7: 10/08/21 05:07 10/09/21 06:20 Labs: Laboratory Results - last 24 hr 10/07/21 10/07/21 10/07/21 19:14 19:28 19:28 MCV 93.3 MCH 31.0 MCHC 33.3 RDW 12.4 Plt Count 153 L MPV 9.8 Immature Gran % (Auto) 0.9 H Neut % (Auto) 90.4 H Lymph % (Auto) 3.2 L [place] % (Auto) 5.4 Eos % (Auto) 0.0 Baso % (Auto) 0.1 Lymph # (Auto) 0.6 L [place] # (Auto) 0.9 Eos # (Auto) 0.0 Baso # (Auto) 0.0 Abs Immat Gran (auto) 0.15 H Absolute Neuts (auto) 15.4 H Absolute Nucleated RBC 0.000 Nucleated RBC % (auto) 0.0 PT INR APTT Anion Gap 16 Estim Creat Clear Calc 84.8 Estimated GFR > 60 POC Glucose 150 H Random Glucose 165 H Lactic Acid Lactic Acid F/U @ 2Hr Lactic Acid F/U @ 4Hr Calcium 9.8 Magnesium Total Bilirubin 1.1 H Direct Bilirubin 0.6 H AST 12 ALT 12 Alkaline Phosphatase 74 Troponin I High Sens B-Natriuretic Peptide Total Protein 7.7 Albumin 4.2 Lipase 22 Urine Color Urine Appearance Urine pH Ur Specific [place] Urine Protein Urine Glucose (UA) Urine Ketones Urine Blood Urine Nitrite Ur Leukocyte Esterase Urine RBC Urine WBC Ur Squamous Epith Cells Urine Bacteria Urine Mucus COVID-19 ([facility]) COVID-19 Clin Com 10/07/21 10/07/21 10/07/21 19:28 19:28 19:28 MCV MCH MCHC RDW Plt Count MPV Immature Gran % (Auto) Neut % (Auto) Lymph % (Auto) [place] % (Auto) Eos % (Auto) Baso % (Auto) Lymph # (Auto) [place] # (Auto) Eos # (Auto) Baso # (Auto) Abs Immat Gran (auto) Absolute Neuts (auto) Absolute Nucleated RBC Nucleated RBC % (auto) PT INR APTT Anion Gap Estim Creat Clear Calc Estimated GFR POC Glucose Random Glucose Lactic Acid 3.3 H* Lactic Acid F/U @ 2Hr Lactic Acid F/U @ 4Hr Calcium Magnesium Total Bilirubin Direct Bilirubin AST ALT Alkaline Phosphatase Troponin I High Sens 8.0 B-Natriuretic Peptide 165 H Total Protein Albumin Lipase Urine Color Urine Appearance Urine pH Ur Specific [place] Urine Protein Urine Glucose (UA) Urine Ketones Urine Blood Urine Nitrite Ur Leukocyte Esterase Urine RBC Urine WBC Ur Squamous Epith Cells Urine Bacteria Urine Mucus COVID-19 ([facility]) Negative COVID-19 Clin Com See Note 10/07/21 10/07/21 10/07/21 19:28 19:50 22:01 MCV MCH MCHC RDW Plt Count MPV Immature Gran % (Auto) Neut % (Auto) Lymph % (Auto) [place] % (Auto) Eos % (Auto) Baso % (Auto) Lymph # (Auto) [place] # (Auto) Eos # (Auto) Baso # (Auto) Abs Immat Gran (auto) Absolute Neuts (auto) Absolute Nucleated RBC Nucleated RBC % (auto) PT 17.8 H INR 1.6 H APTT 42.1 H Anion Gap Estim Creat Clear Calc Estimated GFR POC Glucose Random Glucose Lactic Acid Lactic Acid F/U @ 2Hr 2.9 H* Lactic Acid F/U @ 4Hr Calcium Magnesium Total Bilirubin Direct Bilirubin AST ALT Alkaline Phosphatase Troponin I High Sens B-Natriuretic Peptide Total Protein Albumin Lipase Urine Color DK YELLOW Urine Appearance CLEAR Urine pH 6.0 Ur Specific [place] 1.025 Urine Protein TRACE Urine Glucose (UA) NEG Urine Ketones 15 Urine Blood 2+ H Urine Nitrite NEG Ur Leukocyte Esterase NEG Urine RBC 5-9 H Urine WBC 0-2 Ur Squamous Epith Cells NONE Urine Bacteria TRACE Urine Mucus 1+ COVID-19 ([facility]) COVID-19 [facility] Com 10/08/21 10/08/21 10/08/21 05:07 05:07 05:07 MCV 93.2 MCH 30.7 MCHC 33.0 RDW 12.7 Plt Count 134 L MPV 10.0 Immature Gran % (Auto) 1.1 H Neut % (Auto) 87.5 H Lymph % (Auto) 4.1 L [place] % (Auto) 6.3 Eos % (Auto) 0.8 Baso % (Auto) 0.2 Lymph # (Auto) 0.8 L [place] # (Auto) 1.2 Eos # (Auto) 0.2 Baso # (Auto) 0.0 Abs Immat Gran (auto) 0.21 H Absolute Neuts (auto) 17.4 H Absolute Nucleated RBC 0.000 Nucleated RBC % (auto) 0.0 PT INR APTT Anion Gap 14 Estim Creat Clear Calc 88.0 Estimated GFR > 60 POC Glucose Random Glucose 156 H Lactic Acid Lactic Acid F/U @ 2Hr Lactic Acid F/U @ 4Hr 2.9 H* Calcium 8.5 D Magnesium 2.0 Total Bilirubin Direct Bilirubin AST ALT Alkaline Phosphatase Troponin I High Sens B-Natriuretic Peptide Total Protein Albumin Lipase Urine Color Urine Appearance Urine pH Ur Specific [place] Urine Protein Urine Glucose (UA) Urine Ketones Urine Blood Urine Nitrite Ur Leukocyte Esterase Urine RBC Urine WBC Ur Squamous Epith Cells Urine Bacteria Urine Mucus COVID-19 ([facility]) COVID-19 Clin Com Microbiology Microbiology Results: Microbiology 10/07/21 19:28 Blood Culture - Preliminary Blood - Venous Prelim: GPC Gram Stain only 10/07/21 19:28 Blood Culture - Preliminary Blood - Venous Prelim: GPC Gram Stain only Assessment and Plan (1) Severe sepsis: Status: Acute (2) Cellulitis: Status: Acute (3) Altered mental status: Status: Acute Assessment and Plan: ? 70-year-old male with a past medical history of hypertension, CAD, CHF, chronic AFib on Pradaxa, vascular dementia with behavior disorder, bipolar, depression with psychosis, anxiety, history of right MCA stroke in 2013, history of alcohol abuse; presented to the hospital with a chief complaint of altered mental status/fever/lethargy.? Noted to have following Altered mental status Toxic metabolic encephalopathy likely from sepsis.? Patient has baseline dementia.? Supportive care.? Speech and swallow eval.? Aspiration precautions and fall precautions.? Patient is currently drowsy but easily arousable.? Follows simple verbal commands.? Will also get CT of head Severe sepsis with gram positive cocci bacteremia, ? Secondary to left thigh cellulitis.? Continue Vanconycin but DC Zosyn, follow up on culture sensitivity. Echo to rule endocarditis. ID consult. ? Microscopic hematuria:? May consider repeating urinalysis after hydration tomorrow to ensure improvement.? History of CHF: Chest x-ray showed mild congestion.? Patient currently breathing comfortably on room air.? Patient received IV fluids.? Will monitor respiratory status.? Patient not on diuretics at home. Holding of diuretics for now given soft blood pressure. History of AFib:? Rate controlled.? Continue home metoprolol, Pradaxa. History of anxiety/depression with psychosis/dementia with behavioral disturbance:? Patient on lithium, Ativan[facility] Will continue.? DVT prophylaxis:? Patient on Pradaxa Code status: DNI only.? Attempt resuscitation Quality Stroke Does the patient have a stroke diagnosis?: No VTE Prior VTE?: No VTE Risk Level:: Medical - moderate - high VTE Device Contraindication: Treatment Not Indicated VTE Drug Contraindication: N/A - Med Ordered
--- NOTE | 2021-10-08 14:49 | MHC.CM.PN ---
pt in ed overflow called and spoke to marco a his sister [phone] and jodie she explains her brother annie is the hcp [phone] therer is also another sister cell [phone] her name is lady ..they all collaborate with his care she reports that pt has bve[facility] at [facility] he is a lt resident
--- NOTE | 2021-10-08 15:17 | MHC.SL.SWA ---
Speech Pathologist Impression: Oral Phase Dysphagia Risk of Aspiration Due to: Reduced Cognition Dysphasia Diet Status: Liquid Consistency and Strategies for Safe Swallow: Liquid Intake Recommendation: Thin Liquid Intake Strategies: Small Sips No Straws Solid Food Consistency: Dietary Recommendations: Grnd/Mech Altered (NDD2) Additional Modifications to Solid Foods: Oral Medication Intake: Whole with Puree Compensatory Strategies and Precautions to be Taken for Safe Swallow: Sitting Upright (90 deg) No Straw Liquids from Cup Rate of Ingestion Change Supervision While Eating and Drinking for Safe Swallow: Total Supervision (1:1) Foods to Avoid: NO STRAW PLEASE Swallowing Recommended Treatments: Compens. Strategy Educat. Recommendation for Speech: Inpatient Speech Therapy Comment: Pt presents w/oral phase dysphagia, largely due to lack of dentition, however Pt additionally at risk due to impulsivity, reduced cognition. Clinical s/s aspiration on impulsive chain sip from straw, no clinical s/s on thin liquid by cup sip, puree, soft solid. Pt has prolonged oral phase on soft solids due to mastication. Recommend start diet of Ground Mechanical (NDD2) w/ Thin liquids (no straw), w/ Meds WHOLE in PUREE (per Pt request). Pt will need supervision during meals w/monitor for impulsivity, clinical s/s aspiration during meal. Diet recommendations sent by secure text to MD, Nursing, Dieticians and Rehabilitation Construction Specialist. AGRICULTURAL EXTENSION EDUCATOR will follow 1-2X for toleration of diet recommendation, advancement of diet if warranted. Frequency/Duration: 2X M-F while inpt. Date Range for Service Req: Timeline to reassess: Certified Medical Assistant Clinican/Clinical Fellow: No Supervisory Statement: I have reviewed and agree with the student/clinical fellow's documentation: N/A Speech Language Pathologist: Aura Valencia M.A., CCC-AGRICULTURAL EXTENSION EDUCATOR
--- NOTE | 2021-10-08 16:10 | PC.NURSE ---
PT. lethargic but arousable. SPeaks in full, clear sentences. RR equal and unlabored. Rhoncorous on ausc. VS WNL .
--- NOTE | 2021-10-08 16:30 | PC.NURSE ---
cellulitis to left upper medial thigh to top of left calf. Warm to the touch.
--- NOTE | 2021-10-08 18:05 | PC.NURSE ---
Pt received from main ED: Pt AOX4 with slow responses. Pt of stroke with L sided weakness baseline. Pt hx of AFib and noted on monitor- controlled. Pt lungs clear and diminished at bases. L mid thigh cellulitis noted extending to L calf- erythematous and warm to touch. Mckenzie catheter noted and draining: cloudy and concentrated.
--- NOTE | 2021-10-08 19:41 | PC.NURSE ---
PATIENT WAS INC OF LARGE AMOUNT OF STOOL ,PATIENT WAS CLEANED UP BEDDING WAS CHANGE AND PATIENT WAS REPOSITION ON RIGHT SIDE WITH PILLOW .
[2021-10-08] MEDS: LORazepam 0.5 MG TABLET PO (20:27)
[2021-10-08] MEDS: Famotidine 20 MG TABLET PO (20:27)
[2021-10-08] MEDS: vancomycin HCL 1,000 MG, vancomycin HCL 750 MG in 0.9 % Sodium Chloride 500 ML 267.5 MG IV (20:27)
[2021-10-08] MEDS: Lithium Carbonate 300 MG CAPSULE PO (20:36)
[2021-10-08] MEDS: OLANZapine 10 MG TABLET PO (20:36)
[2021-10-08 21:37] LABS: Glucose, Whole Blood 133 mg/dL (60-115)
[2021-10-08] MEDS: Melatonin 3 MG TABLET 6 MG PO (22:17)
[2021-10-09 00:11] VITALS: PULSE 92; RESP 20
[2021-10-09] MEDS: Piperacillin Sodium/Tazobactam 4.5 GM in 0.9 % Sodium Chloride 100 ML IV ×2 (04:39→11:47)
[2021-10-09 05:50] VITALS: BP 115/61; PULSE 104; RESP 16; O2SAT 98
[2021-10-09 06:53] LABS: Creatinine Clr Calc Pharmacy 120.7; Estimated Glomerular Filt Rate > 60
--- NOTE | 2021-10-09 07:30 | CA_ITS ---
Transthoracic Echocardiogram Patient (Last, First, Middle): Wilder Norwood W Gender: Male Date of : 1950 Age: 70 Procedure Date: 10/09/2021 Procedure Type: Transthoracic Echocardiogram Location: ER Height: 187.96 cm Weight: 122.47 kg BSA: 2.47 m2 Heart Rate: bpm BP: 115 / 61 mmHg Blending Tank Helper: Referring MD: King Doyle MD Symptoms: bacteremia, rule endocarditis Study Quality: Technically Difficult due to obesity ECG Rhythm: Atrial Fibrillation Conclusions: - Difficult to quantify LVEF. Possibly low normal. - No obvious vegetations based on available image quality but this is suboptimal. - There is a small loculated pericardial effusion overlying the left ventricle. Findings Left Ventricle Normal left ventricular cavity size. There is mildly increased left ventricular wall thickness. Regional wall motion abnormalities can not be excluded due to suboptimal endocardial definition. Diastolic function is indeterminate on the basis of available data. Right Ventricle The right ventricle was not well visualized. Normal right ventricular cavity size. Atria Both atria are normal in size. Aortic Valve There is a normal trileaflet aortic valve. There is no aortic valve stenosis. There is trace (trivial) aortic valve regurgitation. Mitral Valve The mitral valve appears normal. There is trace mitral valve regurgitation. There is no mitral valve stenosis. Pulmonic Valve The pulmonic valve was not well visualized. Tricuspid Valve There is trace tricuspid valve regurgitation. The pulmonary artery systolic pressure is normal. Great Vessels The aortic annulus, sinuses of valsalva, and asc aorta are normal in size. Venous The inferior vena cava was not well visualized. Pericardium/Pleural There is a small loculated pericardial effusion overlying the left ventricle. There are no definitive echocardiographic findings of tamponade physiology. Prior Study Comparison No prior study available for comparison. Recommendations, Care & Conclusions Consider a LADY if clinically appropriate. Measurements 2D Linear Measurements IVSd: 1.08 0.6-0.9/0.6-1.0 cm LVIDd: 5.50 3.9-5.3/4.2-5.9 cm LVIDd Index: 2.23 2.4-3.2/2.2-3.1 cm/m2 LVIDs: 4.07 2.0-3.6 cm LVPWd: 1.08 0.7-1.1 cm Ao Root: 3.10 2.1-3.5 cm LA Diam: 4.70 2.7-3.8/3.0-4.0 cm LAIDs Index: 1.90 1.5-2.3 cm/m2 LV Mass: 294.40 67-162/88-224 g LV Mass Index: 119.19 43-95/49-115 g/m2 LVOT Diam: 2.00 3.0+(-)1.3 cm Mitral Valve MV Pk E: 1.00 MV Decel Time: 156.00 E'Lateral: 12.50 E'Medial: 10.80 E/E' Med: 9.20 E/E' Lat: 8.00 PHT: 46.00 MVA PHT: 4.78 Decel [place]: 6.41 Aortic Valve AoV Pk Keo: 0.97 AoV Mn Keo: 0.65 AoV VTI: 0.19 AoV Pk Grad: 4.00 Aov Mn Grad: 2.00 MIKA Cont.VTI: 2.21 LVOT LVOT Pk Keo: 0.57 LVOT Mn Keo: 0.39 LVOT VTI: 0.14 LVOT Pk Grad: 1.00 LVOT Mn Grad: 1.00 LVOT Diam: 2.00 LVOT Area: 3.14 Diastolic Function MV Pk E: 1.00 E'Medial: 10.80 E/E' Med: 9.20 E' Laterial: 12.50 E/E' Lat: 8.00 Tricuspid Valve TR Pk Keo: 2.02 TR Pk Grad: 16.00 Great Vessels Aorta Ao Root-2D: 3.10 2.0-3.7 cm Ao Asc: 3.30 2.1-3.4 cm Pulmonary Valve PV Pk Keo: 0.69 Peak PV Grad: 2.00 Updated in Other Vendor System with Status of Final Hugo Green MD electronically signed on 10/09/2021 12:16:27 PM with status of Final
[2021-10-09] MEDS: Metoprolol Succinate ER 50 MG TAB.ER.24H PO (07:42)
[2021-10-09] MEDS: LORazepam 0.5 MG TABLET PO ×2 (07:42→19:44)
[2021-10-09] MEDS: Dabigatran Etexilate Mesylate 150 MG CAPSULE PO ×2 (07:42→19:44)
[2021-10-09] MEDS: Lithium Carbonate 300 MG CAPSULE 600 MG PO (07:42)
[2021-10-09] MEDS: Gabapentin 300 MG CAPSULE PO ×3 (07:42→19:44)
[2021-10-09] MEDS: polyethylene glycoL 3350 17 GM POWD.PACK PO ×2 (07:43→19:45)
--- NOTE | 2021-10-09 08:28 | PC.NURSE ---
report taken from previous shift rn given breakfast, took morning medications one at a time po without issue. repositioned higher in bed d/t low back pain. pt calm and cooperative, conversational with staff. offers no complaints at this time, call olivares within reach, wctm for dc needs.
[2021-10-09 09:15] LABS: Vancomycin Random 12.7 mcg/mL (15-20)
--- NOTE | 2021-10-09 09:25 | HE.PHANOTE ---
Vancomycin Addendum Patient is expected to be subtherpatuic with 1750 mg Q24H. SCr has decrease daily. Will change dose to 1000 mg Q12H which creates an expected AUC of 426 with a trough of 14.4
[2021-10-09] MEDS: vancomycin HCL 1,000 MG in 0.9 % Sodium Chloride 250 ML 270 MG IV (10:51)
[2021-10-09 12:00] VITALS: BP 103/58; PULSE 88; RESP 18; TEMP 36.6; O2SAT 97
--- NOTE | 2021-10-09 12:27 | P.PNIM_ITS ---
Subjective Subjective Date of Service: 10/09/21 Interval History: f/u on sepsis, metabolic encephalopathy, alert appear to be at baseline, no fever Review of Systems no fever no confusion Physical Exam Vital Signs: Vital Signs: Last Vital Signs Temp 97.8 F 10/08/21 19:40 Pulse 104 H 10/09/21 05:50 Resp 16 10/09/21 05:50 BP 115/61 10/09/21 05:50 Pulse Ox 98 10/09/21 05:50 BMI result Body Mass Index 34.7 Const: Other: General: oriented to self and place Resp: CTA bilateral CVS: S1,S2,RRR GI: +BS, NT, no distention Skin: No rash Neuro: motor grossly intact Psych: appropriate affect Objective Data Active Medications Acetaminophen (Acetaminophen 325 Mg Tablet) 650 mg PO Q6H PRN PRN Reason: Pain, Mild (Pain Scale 1-3) Acetaminophen (Acetaminophen Supp 650 Mg Supp.Rect) 650 mg [place] Q6H PRN PRN Reason: Fever Last Admin: 10/08/21 12:32 Dose: 650 mg Documented by: VITALY Dabigatran (Dabigatran Etexilate Mesylate 150 Mg Capsule) 150 mg PO BID [facility] Last Admin: 10/09/21 07:42 Dose: 150 mg Documented by: ERIC Famotidine (Famotidine 20 Mg Tablet) 20 mg PO BEDTIME [facility] Last Admin: 10/08/21 20:27 Dose: 20 mg Documented by: AGAPITO Gabapentin (Gabapentin 300 Mg Capsule) 300 mg PO TID [facility] Last Admin: 10/09/21 07:42 Dose: 300 mg Documented by: ERIC Dextrose/Sodium Chloride (D5ns) 1,000 mls @ 50 mls/hr IVCONT .Q20H [facility] Last Admin: 10/09/21 07:03 Dose: Not Given Documented by: ERIC Non-Admin Reason: See Note Piperacillin Sod/Tazobactam (Sod 4.5 gm/ Sodium Chloride) 100 mls @ 200 mls/hr IV Q6H [facility] Last Admin: 10/09/21 11:47 Dose: 200 mls/hr Documented by: ERIC [place] Carbonate ([place] Carbonate 300 Mg Capsule) 300 mg PO BEDTIME [facility] Last Admin: 10/08/21 20:36 Dose: 300 mg Documented by: AGAPITO [place] Carbonate ([place] Carbonate 300 Mg Capsule) 600 mg PO DAILY [facility] Last Admin: 10/09/21 07:42 Dose: 600 mg Documented by: ERIC Lorazepam (Lorazepam 0.5 Mg Tablet) 0.5 mg PO BID [facility] Last Admin: 10/09/21 07:42 Dose: 0.5 mg Documented by: ERIC Melatonin (Melatonin 3 Mg Tablet) 6 mg PO BEDTIME PRN PRN Reason: Insomnia Last Admin: 10/08/21 22:17 Dose: 6 mg Documented by: AGAPITO Metoprolol Succinate (Metoprolol Succinate Er 50 Mg Tab.Er.24h) 50 mg PO DAILY [facility]; Protocol Last Admin: 10/09/21 07:42 Dose: 50 mg Documented by: ERIC Olanzapine (Olanzapine 10 Mg Tablet) 10 mg PO BEDTIME [facility] Last Admin: 10/08/21 20:36 Dose: 10 mg Documented by: AGAPITO Pharmacy Consult (Consult Rx Perform Med Rec) 1 each MISCELLANE ONCE PRN PRN Reason: Consult order Pharmacy Consult (Consult Rx Vancomycin Dosing) 1 each MISCELLANE DAILY PRN PRN Reason: Consult order Pharmacy Consult (Consult Rx Vancomycin Dosing) 1 each MISCELLANE DAILY PRN PRN Reason: Consult order Polyethylene Glycol (Polyethylene Glycol 3350 17 Gm Powd.Pack) 17 gm PO BID [facility] Last Admin: 10/09/21 07:43 Dose: 17 gm Documented by: ERIC Senna (Sennosides 8.6 Mg Tablet) 17.2 mg PO BEDTIME PRN PRN Reason: Constipation Sodium Chloride (0.9 % Sodium Chloride Flush 3 Ml Syringe) 3 ml IVFLUSH QSHIFT [facility] Last Admin: 10/09/21 07:03 Dose: Not Given Documented by: ERIC Non-Admin Reason: Med Not Available Labs CBC & Chem 7: 10/08/21 05:07 10/09/21 06:20 Labs: Laboratory Results - last 24 hr 10/08/21 10/09/21 10/09/21 20:49 06:20 07:49 Estim Creat Clear Calc 120.7 Estimated GFR > 60 POC Glucose 133 H Random Vancomycin 12.7 L Microbiology Microbiology Results: Microbiology 10/07/21 19:28 Blood Culture - Preliminary Blood - Venous Streptococcus pyogenes (Grp A) 10/07/21 19:28 Blood Culture - Preliminary Blood - Venous Streptococcus pyogenes (Grp A) Assessment and Plan (1) Severe sepsis: Status: Acute (2) Cellulitis: Status: Acute (3) Altered mental status: Status: Acute Assessment and Plan: ? 70-year-old male with a past medical history of hypertension, CAD, CHF, chronic AFib on Pradaxa, vascular dementia with behavior disorder, bipolar, depression with psychosis, anxiety, history of right MCA stroke in 2013, history of alcohol abuse; presented to the hospital with a chief complaint of altered mental st atus/fever/lethargy.? Noted to have following Altered mental status Toxic metabolic encephalopathy likely from sepsis.? Patient has baseline dementia.? He seems to be back to his baseline Severe sepsis with gram positive cocci bacteremia, ? Secondary to left thigh cellulitis.? Continue JAYLENE Rosas, ID will see. Repeat blood cultures today Microscopic hematuria:? May consider repeating urinalysis after hydration tomorrow to ensure improvement.? History of CHF: Chest x-ray showed mild congestion.? Patient currently breathing comfortably on room air.? Patient received IV fluids.? Will monitor respiratory status.? Patient not on diuretics at home. Holding of diuretics for now given soft blood pressure. History of AFib:? Rate controlled.? Continue home metoprolol, Pradaxa. History of anxiety/depression with psychosis/dementia with behavioral disturbance:? Patient on lithium, Ativan, olanzapine at a long term.? Will continue.? DVT prophylaxis:? Patient on Pradaxa Code status: DNI only.? Attempt resuscitation Quality Stroke Does the patient have a stroke diagnosis?: No VTE Prior VTE?: No VTE Risk Level:: Medical - moderate - high VTE Device Contraindication: Treatment Not Indicated VTE Drug Contraindication: N/A - Med Ordered
--- NOTE | 2021-10-09 15:26 | P.CNID_ITS ---
History of Present Illness Data of Consult Service Date: 10/09/21 Requesting physician: King Doyle Primary Care Provider: Isabelle Torres MD HPI Reason for consult: sepsis He presents from senior living with weakness and lethargy He is more confused than usual He has area on left thigh with cellulitis concern Review of Systems Verdana 4l Review of Systems: Yes all other systems are reviewed and Verdana 4d are negative [facility] Family History Family history: reviewed and not pertinent Social History Social History Household Members: Other Household Members Other:: senior living Housing: [facility] Do you presently have visiting nurse or other home services: No Patient Tobacco Use Status: Former Tobacco user service: No Meds Allergies Allergy/AdvReac Type Severity Reaction Status Date / Time No Known Allergies Allergy Verified 10/07/21 19:13 Active Medications: Current Medications Acetaminophen (Acetaminophen 325 Mg Tablet) 650 mg PO Q6H PRN PRN Reason: Pain, Mild (Pain Scale 1-3) Acetaminophen (Acetaminophen Supp 650 Mg Supp.Rect) 650 mg [place] Q6H PRN PRN Reason: Fever Last Admin: 10/08/21 12:32 Dose: 650 mg Documented by: Dabigatran (Dabigatran Etexilate Mesylate 150 Mg Capsule) 150 mg PO BID [facility] Last Admin: 10/09/21 07:42 Dose: 150 mg Documented by: Famotidine (Famotidine 20 Mg Tablet) 20 mg PO BEDTIME [facility] Last Admin: 10/08/21 20:27 Dose: 20 mg Documented by: Gabapentin (Gabapentin 300 Mg Capsule) 300 mg PO TID [facility] Last Admin: 10/09/21 07:42 Dose: 300 mg Documented by: Dextrose/Sodium Chloride (D5ns) 1,000 mls @ 50 mls/hr IVCONT .Q20H [facility] Last Admin: 10/09/21 07:03 Dose: Not Given Documented by: Clindamycin Phosphate (Cleocin) 900 mg in 50 mls @ 50 mls/hr IV Q8H [facility] [place] Carbonate ([place] Carbonate 300 Mg Capsule) 300 mg PO BEDTIME [facility] Last Admin: 10/08/21 20:36 Dose: 300 mg Documented by: [place] Carbonate ([place] Carbonate 300 Mg Capsule) 600 mg PO DAILY [facility] Last Admin: 10/09/21 07:42 Dose: 600 mg Documented by: Lorazepam (Lorazepam 0.5 Mg Tablet) 0.5 mg PO BID [facility] Last Admin: 10/09/21 07:42 Dose: 0.5 mg Documented by: Melatonin (Melatonin 3 Mg Tablet) 6 mg PO BEDTIME PRN PRN Reason: Insomnia Last Admin: 10/08/21 22:17 Dose: 6 mg Documented by: Metoprolol Succinate (Metoprolol Succinate Er 50 Mg Tab.Er.24h) 50 mg PO DAILY [facility]; Protocol Last Admin: 10/09/21 07:42 Dose: 50 mg Documented by: Olanzapine (Olanzapine 10 Mg Tablet) 10 mg PO BEDTIME [facility] Last Admin: 10/08/21 20:36 Dose: 10 mg Documented by: Pharmacy Consult (Consult Rx Perform Med Rec) 1 each MISCELLANE ONCE PRN PRN Reason: Consult order Pharmacy Consult (Consult Rx Vancomycin Dosing) 1 each MISCELLANE DAILY PRN PRN Reason: Consult order Pharmacy Consult (Consult Rx Vancomycin Dosing) 1 each MISCELLANE DAILY PRN PRN Reason: Consult order Polyethylene Glycol (Polyethylene Glycol 3350 17 Gm Powd.Pack) 17 gm PO BID [facility] Last Admin: 10/09/21 07:43 Dose: 17 gm Documented by: Senna (Sennosides 8.6 Mg Tablet) 17.2 mg PO BEDTIME PRN PRN Reason: Constipation Sodium Chloride (0.9 % Sodium Chloride Flush 3 Ml Syringe) 3 ml IVFLUSH QSHIFT [facility] Last Admin: 10/09/21 07:03 Dose: Not Given Documented by: Home Medications Medication Instructions Recorded Confirmed Last Taken Type acetaminophen 500 1,000 mg PO BID 10/07/21 10/07/21 10/07/21 History mg tablet dabigatran 150 mg PO BID 10/07/21 10/07/21 10/07/21 History etexilate 150 mg capsule (Pradaxa) famotidine 20 mg 20 mg PO BEDTIME 10/07/21 10/07/21 10/06/21 History tablet gabapentin 300 mg 300 mg PO TID 10/07/21 10/07/21 10/07/21 History capsule lithium carbonate 300 mg PO 10/07/21 10/07/21 10/06/21 History 300 mg capsule BEDTIME lithium carbonate 600 mg PO DAILY 10/07/21 10/07/21 10/07/21 History 300 mg capsule lorazepam 0.5 mg 1 tab PO BID 10/07/21 10/07/21 10/07/21 History tablet metoprolol 50 mg PO DAILY 10/07/21 10/07/21 10/07/21 History succinate 50 mg tablet,extended release 24 hr olanzapine 10 mg 10 mg PO BEDTIME 10/07/21 10/07/21 10/06/21 History tablet polyethylene 17 g PO BID 10/07/21 10/07/21 10/07/21 History glycol 3350 17 gram/dose oral powder (Miralax) sennosides 8.6 mg 17.2 mg PO 10/07/21 10/07/21 10/06/21 History tablet (senna) BEDTIME simvastatin 5 mg 5 mg PO BEDTIME 10/07/21 10/07/21 10/06/21 History tablet Physical Exam Verdana 4l Vital Signs: Verdana 4d Verdana 4d Vital Signs: Verdana 4d Verdana 4Bd Last Vital Signs Verdana 4d Hub Cutter New 4d Hub Cutter New 4d Temp 97.8 F 10/09/21 12:00 Hub Cutter New 4d Pulse 88 10/09/21 12:00 Hub Cutter New 4d Resp 18 10/09/21 12:00 BP 103/58 L 10/09/21 12:00 Pulse Ox 97 10/09/21 12:00 BMI result Body Mass Index 34.7 Const: General: cooperative HENMT: General nose exam: Normal external nose present Mouth: Normal oral and palatal mucosa present Eyes: General: appearance normal, both eyes and all related structures Resp: Effort & Inspection: normal respiratory effort Cardio: Rate: regular rate Rhythm: regular rhythm GI: Palpation (GI): Soft to palpation and nontender Skin: Other: left thigh erythema midthigh Results Labs CBC & Chem 7: 10/12/21 06:04 10/12/21 06:04 Labs: BMP 10/09/21 06:20 Creatinine 0.78 Microbiology Microbiology Results: Microbiology 10/07/21 19:28 Blood - Venous Blood Culture - Preliminary Streptococcus pyogenes (Grp A) 10/07/21 19:28 Blood - Venous Blood Culture - Preliminary Streptococcus pyogenes (Grp A) Assessment and Plan (1) Altered mental status: Status: Acute (2) Cellulitis: Status: Acute He has Group A strep sepsis He has dementia and family is concerned (3) Severe sepsis: Status: Resolved Plan Would give Group A strep specific medication Clindamycin 900 mg IV every 8 hours Add Ceftriaxone 1 g IV daily
--- NOTE | 2021-10-09 15:26 | W.PM.IDCN ---
History of Present Illness Data of Consult Service Date: 10/09/21 Requesting physician: King Doyle Primary Care Provider: Isabelle Torres MD HPI Reason for consult: sepsis He presents from [facility] with weakness and lethargy He is more confused than usual He has area on left thigh with cellulitis concern Review of Systems Review of Systems: Yes all other systems are reviewed and are negative PMFSH Family History Family history: reviewed and not pertinent Social History Social History Household Members: Other Household Members Other:: [facility] Housing: [facility] Term Do you presently have visiting nurse or other home services: No Patient Tobacco Use Status: Former Tobacco user service: No Meds Allergies Allergy/AdvReac Type Severity Reaction Status Date / Time No Known Allergies Allergy Verified 10/07/21 19:13 Active Medications: Current Medications Acetaminophen (Acetaminophen 325 Mg Tablet) 650 mg PO Q6H PRN PRN Reason: Pain, Mild (Pain Scale 1-3) Acetaminophen (Acetaminophen Supp 650 Mg Supp.Rect) 650 mg [place] Q6H PRN PRN Reason: Fever Last Admin: 10/08/21 12:32 Dose: 650 mg Documented by: Dabigatran (Dabigatran Etexilate Mesylate 150 Mg Capsule) 150 mg PO BID [facility] Last Admin: 10/09/21 07:42 Dose: 150 mg Documented by: Famotidine (Famotidine 20 Mg Tablet) 20 mg PO BEDTIME [facility] Last Admin: 10/08/21 20:27 Dose: 20 mg Documented by: Gabapentin (Gabapentin 300 Mg Capsule) 300 mg PO TID [facility] Last Admin: 10/09/21 07:42 Dose: 300 mg Documented by: Dextrose/Sodium Chloride (D5ns) 1,000 mls @ 50 mls/hr IVCONT .Q20H [facility] Last Admin: 10/09/21 07:03 Dose: Not Given Documented by: Clindamycin Phosphate (Cleocin) 900 mg in 50 mls @ 50 mls/hr IV Q8H [facility] [place] Carbonate ([place] Carbonate 300 Mg Capsule) 300 mg PO BEDTIME [facility] Last Admin: 10/08/21 20:36 Dose: 300 mg Documented by: [place] Carbonate ([place] Carbonate 300 Mg Capsule) 600 mg PO DAILY [facility] Last Admin: 10/09/21 07:42 Dose: 600 mg Documented by: Lorazepam (Lorazepam 0.5 Mg Tablet) 0.5 mg PO BID [facility] Last Admin: 10/09/21 07:42 Dose: 0.5 mg Documented by: Melatonin (Melatonin 3 Mg Tablet) 6 mg PO BEDTIME PRN PRN Reason: Insomnia Last Admin: 10/08/21 22:17 Dose: 6 mg Documented by: Metoprolol Succinate (Metoprolol Succinate Er 50 Mg Tab.Er.24h) 50 mg PO DAILY [facility]; Protocol Last Admin: 10/09/21 07:42 Dose: 50 mg Documented by: Olanzapine (Olanzapine 10 Mg Tablet) 10 mg PO BEDTIME [facility] Last Admin: 10/08/21 20:36 Dose: 10 mg Documented by: Pharmacy Consult (Consult Rx Perform Med Rec) 1 each MISCELLANE ONCE PRN PRN Reason: Consult order Pharmacy Consult (Consult Rx Vancomycin Dosing) 1 each MISCELLANE DAILY PRN PRN Reason: Consult order Pharmacy Consult (Consult Rx Vancomycin Dosing) 1 each MISCELLANE DAILY PRN PRN Reason: Consult order Polyethylene Glycol (Polyethylene Glycol 3350 17 Gm Powd.Pack) 17 gm PO BID [facility] Last Admin: 10/09/21 07:43 Dose: 17 gm Documented by: Senna (Sennosides 8.6 Mg Tablet) 17.2 mg PO BEDTIME PRN PRN Reason: Constipation Sodium Chloride (0.9 % Sodium Chloride Flush 3 Ml Syringe) 3 ml IVFLUSH QSHIFT [facility] Last Admin: 10/09/21 07:03 Dose: Not Given Documented by: Home Medications Medication Instructions Recorded Confirmed Last Taken Type acetaminophen 500 mg tablet 1,000 mg PO BID 10/07/21 10/07/21 10/07/21 History dabigatran etexilate 150 mg 150 mg PO BID 10/07/21 10/07/21 10/07/21 History capsule (Pradaxa) famotidine 20 mg tablet 20 mg PO BEDTIME 10/07/21 10/07/21 10/06/21 History gabapentin 300 mg capsule 300 mg PO TID 10/07/21 10/07/21 10/07/21 History lithium carbonate 300 mg capsule 300 mg PO BEDTIME 10/07/21 10/07/21 10/06/21 History lithium carbonate 300 mg capsule 600 mg PO DAILY 10/07/21 10/07/21 10/07/21 History lorazepam 0.5 mg tablet 1 tab PO BID 10/07/21 10/07/21 10/07/21 History metoprolol succinate 50 mg 50 mg PO DAILY 10/07/21 10/07/21 10/07/21 History tablet,extended release 24 hr olanzapine 10 mg tablet 10 mg PO BEDTIME 10/07/21 10/07/21 10/06/21 History polyethylene glycol 3350 17 17 g PO BID 10/07/21 10/07/21 10/07/21 History gram/dose oral powder (Miralax) sennosides 8.6 mg tablet (senna) 17.2 mg PO BEDTIME 10/07/21 10/07/21 10/06/21 History simvastatin 5 mg tablet 5 mg PO BEDTIME 10/07/21 10/07/21 10/06/21 History Physical Exam Vital Signs: Vital Signs: Last Vital Signs Temp 97.8 F 10/09/21 12:00 Pulse 88 10/09/21 12:00 Resp 18 10/09/21 12:00 BP 103/58 L 10/09/21 12:00 Pulse Ox 97 10/09/21 12:00 BMI result Body Mass Index 34.7 Const: General: cooperative HENMT: General nose exam: Normal external nose present Mouth: Normal oral and palatal mucosa present Eyes: General: appearance normal, both eyes and all related structures Resp: Effort & Inspection: normal respiratory effort Cardio: Rate: regular rate Rhythm: regular rhythm GI: Palpation (GI): Soft to palpation and nontender Skin: Other: left thigh erythema midthigh Results Labs CBC & Chem 7: 10/12/21 06:04 10/12/21 06:04 Labs: BMP 10/09/21 06:20 Creatinine 0.78 Microbiology Microbiology Results: Microbiology 10/07/21 19:28 Blood - Venous Blood Culture - Preliminary Streptococcus pyogenes (Grp A) 10/07/21 19:28 Blood - Venous Blood Culture - Preliminary Streptococcus pyogenes (Grp A) Assessment and Plan (1) Altered mental status: Status: Acute (2) Cellulitis: Status: Acute He has Group A strep sepsis He has dementia and family is concerned (3) Severe sepsis: Status: Resolved Plan Would give Group A strep specific medication Clindamycin 900 mg IV every 8 hours Add Ceftriaxone 1 g IV daily
[2021-10-09 15:39] VITALS: BP 103/71; PULSE 82; RESP 18; TEMP 36.2; O2SAT 96
--- NOTE | 2021-10-09 16:39 | MHC.SLORD ---
Speech Language Pathology Order Status: Attempted to see PT p.m., Pt sleeping, lethargic when roused, not alert enough for po trials. d/c [place] visit for today.
[2021-10-09] MEDS: cefTRIAXone sodium 1 GM in 0.9 % Sodium Chloride 50 ML IV (18:03)
[2021-10-09] MEDS: Dextrose 5 % and 0.9 % NaCl 1,000 ML 50 ML IVCONT (18:04)
[2021-10-09] MEDS: Famotidine 20 MG TABLET PO (19:44)
[2021-10-09] MEDS: OLANZapine 10 MG TABLET PO (19:44)
[2021-10-09] MEDS: Clindamycin Phosphate/D5W 900 MG/50 ML PIGGYBACK 50 MG IV (19:44)
[2021-10-09] MEDS: Lithium Carbonate 300 MG CAPSULE PO (19:44)
[2021-10-09 19:51] VITALS: BP 114/66; PULSE 77; RESP 18; TEMP 36.1; O2SAT 97
[2021-10-10] VITALS: BP 114/56; PULSE 77; RESP 18; TEMP 36; O2SAT 96
[2021-10-10] MEDS: Clindamycin Phosphate/D5W 900 MG/50 ML PIGGYBACK 50 MG IV (03:38)
[2021-10-10 03:57] VITALS: BP 92/54; PULSE 73; RESP 18; TEMP 36; O2SAT 96
[2021-10-10 07:38] VITALS: BP 96/53; PULSE 77; RESP 18; TEMP 36.4; O2SAT 96
[2021-10-10 08:38] LABS: Creatinine Clr Calc Pharmacy 132.6; Estimated Glomerular Filt Rate > 60
[2021-10-10 08:46] LABS: Vancomycin Trough 7.1 mcg/mL (10.0-20.0)
[2021-10-10] MEDS: Lithium Carbonate 300 MG CAPSULE 600 MG PO (10:02)
[2021-10-10] MEDS: Dabigatran Etexilate Mesylate 150 MG CAPSULE PO ×2 (10:02→20:35)
[2021-10-10] MEDS: LORazepam 0.5 MG TABLET PO ×2 (10:02→20:35)
[2021-10-10] MEDS: Metoprolol Succinate ER 50 MG TAB.ER.24H PO (10:02)
--- NOTE | 2021-10-10 13:16 | MHC.CM.PN ---
Addendum entered by Aura Gomez RN 10/10/21 14:34: CM RECEIVED COPIES OF PT'S HCP AND [facility], HEALTH CARE AGENT IS ENMANUEL [place] [phone], THERE IS NO ALTERNATE LISTED. Original Note: PER MULTIDISCIPLINARY ROUNDS PT NOT READY FOR D/C, CM HAS CONTACTED [facility] AT 12:45PM [phone] AND REQUESTED A COPY OF PT'S HCP BE FAXED TO [facility] [place]. D/C PLAN: RETURN TO [facility] W/ACTION FOR BLS TRANSPORT
--- NOTE | 2021-10-10 13:39 | P.PNIM_ITS ---
Subjective Subjective Date of Service: 10/11/21 Interval History: no acute issues overnight; minimal pain left leg Review of Systems denies chest pain Denies shortness of breath Denies nausea vomiting diarrhea Physical Exam Vital Signs: Vital Signs: Last Vital Signs Temp 97.5 F 10/10/21 07:38 Pulse 77 10/10/21 07:38 Resp 18 10/10/21 07:38 BP 96/53 L 10/10/21 07:38 Pulse Ox 96 10/10/21 07:38 BMI result Body Mass Index 34.7 Const: Other: awake alert no acute distress Resp: Other: clear to auscultation bilaterally no rales rhonchi wheezes Cardio: Other: no S4; positive S1-S2; no S3 murmurs rubs or gallops GI: Other: soft positive bowel sounds x4 quadrants. No rebound or guarding Extrem: Other: Arely /erythematous region left inner thigh from groin fold to inner aspect of knee Objective Data Active Medications Acetaminophen (Acetaminophen 325 Mg Tablet) 650 mg PO Q6H PRN PRN Reason: Pain, Mild (Pain Scale 1-3) Acetaminophen (Acetaminophen Supp 650 Mg Supp.Rect) 650 mg [place] Q6H PRN PRN Reason: Fever Last Admin: 10/08/21 12:32 Dose: 650 mg Documented by: VITALY Dabigatran (Dabigatran Etexilate Mesylate 150 Mg Capsule) 150 mg PO BID [facility] Last Admin: 10/10/21 10:02 Dose: 150 mg Documented by: ALEXUS Famotidine (Famotidine 20 Mg Tablet) 20 mg PO BEDTIME [facility] Last Admin: 10/09/21 19:44 Dose: 20 mg Documented by: KERWIN Gabapentin (Gabapentin 300 Mg Capsule) 300 mg PO TID [facility] Last Admin: 10/10/21 10:01 Dose: 300 mg Documented by: ALEXUS Dextrose/Sodium Chloride (D5ns) 1,000 mls @ 50 mls/hr IVCONT .Q20H [facility] Last Admin: 10/10/21 06:21 Dose: Not Given Documented by: KERWIN Non-Admin Reason: IV Running Ceftriaxone Sodium 1 gm/ (Sodium Chloride) 50 mls @ 100 mls/hr IV Q24H [facility] Last Infusion: 10/09/21 18:39 Dose: 0 mls/hr Documented by: MARCUS Clindamycin Phosphate (Cleocin) 900 mg in 50 mls @ 50 mls/hr IV Q8H [facility] Last Infusion: 10/10/21 04:39 Dose: 0 mls/hr Documented by: KERWIN [place] Carbonate ([place] Carbonate 300 Mg Capsule) 300 mg PO BEDTIME [facility] Last Admin: 10/09/21 19:44 Dose: 300 mg Documented by: KERWIN [place] Carbonate ([place] Carbonate 300 Mg Capsule) 600 mg PO DAILY [facility] Last Admin: 10/10/21 10:02 Dose: 600 mg Documented by: ALEXUS Lorazepam (Lorazepam 0.5 Mg Tablet) 0.5 mg PO BID [facility] Last Admin: 10/10/21 10:02 Dose: 0.5 mg Documented by: ALEXUS Melatonin (Melatonin 3 Mg Tablet) 6 mg PO BEDTIME PRN PRN Reason: Insomnia Last Admin: 10/08/21 22:17 Dose: 6 mg Documented by: AGAPITO Metoprolol Succinate (Metoprolol Succinate Er 50 Mg Tab.Er.24h) 50 mg PO DAILY [facility]; Protocol Last Admin: 10/10/21 10:02 Dose: 50 mg Documented by: ALEXUS Olanzapine (Olanzapine 10 Mg Tablet) 10 mg PO BEDTIME [facility] Last Admin: 10/09/21 19:44 Dose: 10 mg Documented by: KERWIN Pharmacy Consult (Consult Rx Perform Med Rec) 1 each MISCELLANE ONCE PRN PRN Reason: Consult order Pharmacy Consult (Consult Rx Vancomycin Dosing) 1 each MISCELLANE DAILY PRN PRN Reason: Consult order Pharmacy Consult (Consult Rx Vancomycin Dosing) 1 each MISCELLANE DAILY PRN PRN Reason: Consult order Polyethylene Glycol (Polyethylene Glycol 3350 17 Gm Powd.Pack) 17 gm PO BID [facility] Last Admin: 10/10/21 10:02 Dose: 17 gm Documented by: ALEXUS Senna (Sennosides 8.6 Mg Tablet) 17.2 mg PO BEDTIME PRN PRN Reason: Constipation Sodium Chloride (0.9 % Sodium Chloride Flush 3 Ml Syringe) 3 ml IVFLUSH QSHIFT [facility] Last Admin: 10/10/21 10:09 Dose: Not Given Documented by: ALEXUS Non-Admin Reason: IV Running Labs CBC & Chem 7: 10/11/21 05:57 10/11/21 05:57 Labs: Laboratory Results - last 24 hr 01/12/22 01/12/22 08:10 08:10 Estim Creat Clear Calc 132.6 Estimated GFR > 60 Vancomycin Trough 7.1 L Microbiology Microbiology Results: Microbiology 10/09/21 08:57 Blood Culture - Preliminary Blood - Venous No growth after 24 hours. 10/09/21 08:57 Blood Culture - Preliminary Blood - Venous No growth after 24 hours. 10/07/21 19:28 Blood Culture - Final Blood - Venous Streptococcus pyogenes (Grp A) 10/07/21 19:28 Blood Culture - Final Blood - Venous Streptococcus pyogenes (Grp A) Assessment and Plan (1) Cellulitis: Status: Acute (2) Afib: Status: Acute Assessment and Plan: ? 70-year-old male with a past medical history of hypertension, CAD, CHF, chronic AFib on Pradaxa, vascular dementia with behavior disorder, bipolar, depression with psychosis, anxiety, history of right MCA stroke in 2013, history of alcohol abuse; presented to the hospital with a chief complaint of altered mental status/fever/lethargy.? Initially septic but has resolved with treatments Altered mental status Toxic metabolic encephalopathy likely from sepsis.? Patient has baseline dementia.? He seems to be back to his baseline 1. Cellulitis with [place] bacteremiaa Resistant to Clinda....Await ID 2.Chronic AFib ? Rate controlled.? Continue BB/Pradaxa 4.Psychosis/dementia with behavioral disturbance:? Continue lithium, Ativan, olanzapine DVT prophylaxis:? Patient on Pradaxa Code status: DNI only.? Attempt resuscitation Quality Stroke Does the patient have a stroke diagnosis?: No VTE Prior VTE?: No VTE Risk Level:: Medical - moderate - high VTE Device Contraindication: Treatment Not Indicated VTE Drug Contraindication: N/A - Med Ordered
--- NOTE | 2021-10-10 14:47 | MHC.CLN ---
NUTRITION CONSULT CONSULT FOR SKIN REDNESS. REDNESS RIGHT THIGH DOES NOT APPEAR TO BE PRESSURE RELATED. DIET=REGULAR, NDD2. NO ADDITIONAL NUTRITION INTERVENTIONS AT THIS TIME.
[2021-10-10 16:00] VITALS: BP 122/89; PULSE 87; RESP 15; TEMP 36; O2SAT 96
[2021-10-10] MEDS: 0.9 % Sodium Chloride Flush 3 ML SYRINGE IVFLUSH (16:33)
[2021-10-10] MEDS: Gabapentin 300 MG CAPSULE PO ×2 (16:34→20:35)
--- NOTE | 2021-10-10 17:23 | MHC.SL.SWA ---
Speech Pathologist Impression: Oral Phase Dysphagia Risk of Aspiration Due to: Reduced Cognition Dysphasia Diet Status: No Change Liquid Consistency and Strategies for Safe Swallow: Liquid Intake Recommendation: Thin Liquid Intake Strategies: Small Sips Solid Food Consistency: Dietary Recommendations: Grnd/Mech Altered (NDD2) Additional Modifications to Solid Foods: Plan was previously to discharge ST intervention for dysphagia. However, today patient presented with difficulty chewing solids. Recommend continue modified diet GROUND/MECH ALTERED (NDD2) solids and THIN liquids, with pills WHOLE in PUREE. Recommend assistance with tray set up at meal time. When seen by SHEET FINISHER this date, patient stated that he has been requesting speech therapy because it is difficulty for [him] to talk. 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 Patient presents with moderate dysarthria. Patient would benefit from continued ST intervention for treatment/support- dysphagia & speech. Strongly recommend continue ST intervention at next level of care. Oral Medication Intake: Whole with Puree Compensatory Strategies and Precautions to be Taken for Safe Swallow: Sitting Upright (90 deg) Double Swallow Small Bites and Sips Alternate Liquids/Solids Rate of Ingestion Change Avoid Specific Foods Supervision While Eating and Drinking for Safe Swallow: Total Supervision (1:1) Swallowing Recommended Treatments: Compens. Strategy Educat. Recommendation for Speech: Inpatient Speech Therapy Animal Pathology Teacher Clinican/Clinical Fellow: No Supervisory Statement: I have reviewed and agree with the student/clinical fellow's documentation: N/A Speech Language Pathologist: Chelsi Cook M.A., CCC-SHEET FINISHER
[2021-10-10] MEDS: Dextrose 5 % and 0.9 % NaCl 1,000 ML 50 ML IVCONT (19:59)
[2021-10-10 20:00] VITALS: BP 117/77; PULSE 76; RESP 16; TEMP 36.1; O2SAT 98
[2021-10-10] MEDS: OLANZapine 10 MG TABLET PO (20:35)
[2021-10-10] MEDS: Lithium Carbonate 300 MG CAPSULE PO (20:35)
[2021-10-10] MEDS: Famotidine 20 MG TABLET PO (20:35)
[2021-10-10] MEDS: polyethylene glycoL 3350 17 GM POWD.PACK PO (20:35)
[2021-10-11] VITALS (7 sets, daily range): BP systolic 112–159; BP diastolic 61–90; PULSE 77–100; RESP 15–18; TEMP 36–36.4; O2SAT 95–98
[2021-10-11] MEDS: Dextrose 5 % and 0.9 % NaCl 1,000 ML 50 ML IVCONT (02:16)
[2021-10-11 06:12] LABS: MANUAL DIFF FLAG NO
[2021-10-11 06:17] LABS: Basophils Percent Auto 0.3 % (0-2); Eosinophils Absolute Auto 0.2 X10*3/uL (0.0-0.4); Eosinophils Percent Auto 2.1 % (0-4); Hematocrit 42.5 % (42.0-52.0); Imm Gran Abs Auto 0.09 X10*3/uL (0.00-0.03); Lymphocytes Absolute Auto 1.5 X10*3/uL (1.2-4.9); Lymphocytes Percent Auto 16.9 % (20-40); Mean Corpuscular HGB Conc 32.9 g/dl (31.0-36.0); Mean Corpuscular Hemoglobin 30.6 pg (27.0-33.0); Mean Corpuscular Volume 92.8 fL (80.0-98.0); Mean Platelet Volume 10.2 fL (9.4-12.4); Monocytes Absolute Auto 0.6 X10*3/uL (0.1-1.2); Monocytes Percent Auto 6.9 % (2-11); Neutrophils Absolute Auto 6.3 x10*3/uL (2.0-8.3); Neutrophils Percent Auto 72.8 % (45-73); Platelet Count 156 X10*3/uL (160-400); Red Blood Count 4.58 X10*6/uL (4.60-5.80); Red Cell Distribution Width 13.1 % (11.0-16.0); White Blood Count 8.6 X10*3/uL (4.8-10.8)
[2021-10-11 06:51] LABS: Alanine Aminotransferase 23 U/L (0-40); Albumin Level 3.2 g/dL (3.5-5.0); Alkaline Phosphatase 57 U/L (39-117); Anion Gap 11 (12-20); Aspartate Amino Transferase 12 U/L (5-37); Bilirubin Total 0.6 mg/dL (0.0-1.0); Blood Urea Nitrogen 5 mg/dL (9-16); Calcium 8.3 mg/dL (8.4-10.2); Carbon Dioxide 24 mmol/L (22-29); Chloride 111 mmol/L (96-108); Creatinine Clr Calc Pharmacy 140.6; Estimated Glomerular Filt Rate > 60; Glucose Fasting 100 mg/dL (60-99); Potassium 3.7 mmol/L (3.3-5.1); Sodium 142 mmol/L (135-145); Total Protein 6.3 g/dL (6.5-8.0)
[2021-10-11] MEDS: LORazepam 0.5 MG TABLET PO ×2 (09:32→21:13)
[2021-10-11] MEDS: polyethylene glycoL 3350 17 GM POWD.PACK PO ×2 (09:32→21:13)
[2021-10-11] MEDS: Metoprolol Succinate ER 50 MG TAB.ER.24H PO (09:32)
[2021-10-11] MEDS: Gabapentin 300 MG CAPSULE PO ×2 (09:32→21:13)
[2021-10-11] MEDS: Lithium Carbonate 300 MG CAPSULE 600 MG PO (09:32)
[2021-10-11] MEDS: Dabigatran Etexilate Mesylate 150 MG CAPSULE PO ×2 (09:33→21:14)
--- NOTE | 2021-10-11 12:57 | HO.PM.IMPN ---
Subjective Subjective Date of Service: 10/11/21 Interval History: no acute changes over.... remains afebrile Review of Systems denies chest pain Denies shortness of breath Denies nausea vomiting diarrhea Physical Exam Vital Signs: Vital Signs: Last Vital Signs Temp 97.2 F 10/11/21 11:55 Pulse 100 10/11/21 11:55 Resp 15 10/11/21 11:55 BP 118/73 10/11/21 11:55 Pulse Ox 98 10/11/21 11:55 BMI result Body Mass Index 34.7 Const: Other: awake alert no acute distress Resp: Other: clear to auscultation bilaterally no rales rhonchi wheezes Cardio: Other: no S4; positive S1-S2; no S3 murmurs rubs or gallops GI: Other: soft positive bowel sounds x4 quadrants. No rebound or guarding Extrem: Other: Arely /erythematous region left inner thigh from groin fold to inner aspect of knee Objective Data Active Medications Acetaminophen (Acetaminophen 325 Mg Tablet) 650 mg PO Q6H PRN PRN Reason: Pain, Mild (Pain Scale 1-3) Acetaminophen (Acetaminophen Supp 650 Mg Supp.Rect) 650 mg [place] Q6H PRN PRN Reason: Fever Last Admin: 10/08/21 12:32 Dose: 650 mg Documented by: VITALY Dabigatran (Dabigatran Etexilate Mesylate 150 Mg Capsule) 150 mg PO BID [facility] Last Admin: 10/11/21 09:33 Dose: 150 mg Documented by: BETSY Famotidine (Famotidine 20 Mg Tablet) 20 mg PO BEDTIME [facility] Last Admin: 10/10/21 20:35 Dose: 20 mg Documented by: COLLEEN Gabapentin (Gabapentin 300 Mg Capsule) 300 mg PO TID [facility] Last Admin: 10/11/21 09:32 Dose: 300 mg Documented by: BETSY Penicillin G Potassium 4,000, (000 unit/ Sodium Chloride) 108 mls @ 108 mls/hr IV Q4H [facility] Last Admin: 10/11/21 12:05 Dose: 108 mls/hr Documented by: BETSY [place] Carbonate ([place] Carbonate 300 Mg Capsule) 300 mg PO BEDTIME [facility] Last Admin: 10/10/21 20:35 Dose: 300 mg Documented by: COLLEEN [place] Carbonate ([place] Carbonate 300 Mg Capsule) 600 mg PO DAILY [facility] Last Admin: 10/11/21 09:32 Dose: 600 mg Documented by: BETSY Lorazepam (Lorazepam 0.5 Mg Tablet) 0.5 mg PO BID [facility] Last Admin: 10/11/21 09:32 Dose: 0.5 mg Documented by: BETSY Melatonin (Melatonin 3 Mg Tablet) 6 mg PO BEDTIME PRN PRN Reason: Insomnia Last Admin: 10/08/21 22:17 Dose: 6 mg Documented by: WIN-PARTONJA Metoprolol Succinate (Metoprolol Succinate Er 50 Mg Tab.Er.24h) 50 mg PO DAILY [facility]; Protocol Last Admin: 10/11/21 09:32 Dose: 50 mg Documented by: BETSY Olanzapine (Olanzapine 10 Mg Tablet) 10 mg PO BEDTIME [facility] Last Admin: 10/10/21 20:35 Dose: 10 mg Documented by: COLLEEN Pharmacy Consult (Consult Rx Perform Med Rec) 1 each MISCELLANE ONCE PRN PRN Reason: Consult order Pharmacy Consult (Consult Rx Vancomycin Dosing) 1 each MISCELLANE DAILY PRN PRN Reason: Consult order Pharmacy Consult (Consult Rx Vancomycin Dosing) 1 each MISCELLANE DAILY PRN PRN Reason: Consult order Polyethylene Glycol (Polyethylene Glycol 3350 17 Gm Powd.Pack) 17 gm PO BID [facility] Last Admin: 10/11/21 09:32 Dose: 17 gm Documented by: BETSY Senna (Sennosides 8.6 Mg Tablet) 17.2 mg PO BEDTIME PRN PRN Reason: Constipation Sodium Chloride (0.9 % Sodium Chloride Flush 3 Ml Syringe) 3 ml IVFLUSH QSHIFT [facility] Last Admin: 10/11/21 09:33 Dose: Not Given Documented by: BETSY Non-Admin Reason: IV Running Labs CBC & Chem 7: 10/11/21 05:57 10/11/21 05:57 Labs: Laboratory Results - last 24 hr 10/11/21 10/11/21 05:57 05:57 MCV 92.8 MCH 30.6 MCHC 32.9 RDW 13.1 Plt Count 156 L MPV 10.2 Immature Gran % (Auto) 1.0 H Neut % (Auto) 72.8 Lymph % (Auto) 16.9 L [place] % (Auto) 6.9 Eos % (Auto) 2.1 Baso % (Auto) 0.3 Lymph # (Auto) 1.5 [place] # (Auto) 0.6 Eos # (Auto) 0.2 Baso # (Auto) 0.0 Abs Immat Gran (auto) 0.09 H Absolute Neuts (auto) 6.3 Absolute Nucleated RBC 0.000 Nucleated RBC % (auto) 0.0 Anion Gap 11 L Estim Creat Clear Calc 140.6 Estimated GFR > 60 Fasting Glucose 100 H Calcium 8.3 L Total Bilirubin 0.6 AST 12 ALT 23 Alkaline Phosphatase 57 D Total Protein 6.3 L Albumin 3.2 L D Microbiology Microbiology Results: Microbiology 10/09/21 08:57 Blood Culture - Preliminary Blood - Venous No growth after 48 hours. 10/09/21 08:57 Blood Culture - Preliminary Blood - Venous No growth after 48 hours. 10/07/21 19:28 Blood Culture - Final Blood - Venous Streptococcus pyogenes (Grp A) 10/07/21 19:28 Blood Culture - Final Blood - Venous Streptococcus pyogenes (Grp A) Assessment and Plan (1) Cellulitis: Status: Acute (2) Afib: Status: Acute Assessment and Plan: ? 70-year-old male with a past medical history of hypertension, CAD, CHF, chronic AFib on Pradaxa, vascular dementia with behavior disorder, bipolar, depression with psychosis, anxiety, history of right MCA stroke in 2013, history of alcohol abuse; presented to the hospital with a chief complaint of altered mental status/fever/lethargy.? Initially septic but has resolved with treatments Altered mental status Toxic metabolic encephalopathy likely from sepsis.? Patient has baseline dementia.? He seems to be back to his baseline 1. Cellulitis with [place] bacteremiaa Resistant to Clinda.... pen G 4000 units IV q.4 hours will discuss duration with Infectious Disease 2.Chronic AFib ? Rate controlled.? Continue BB/Pradaxa 4.Psychosis/dementia with behavioral disturbance:? Continue lithium, Ativan, olanzapine DVT prophylaxis:? Patient on Pradaxa Code status: DNI only.? Attempt resuscitation Quality Stroke Does the patient have a stroke diagnosis?: No VTE Prior VTE?: No VTE Risk Level:: Medical - moderate - high VTE Device Contraindication: Treatment Not Indicated VTE Drug Contraindication: N/A - Med Ordered
--- NOTE | 2021-10-11 14:06 | P.CDIC_ITS ---
CDI Concurrent Query Documentation Clarification: PHYSICIAN'S DOCUMENTATION REQUEST Date of Query: 10/11/21 1406 Patient Name: Wilder Norwood Admit Date: 10/07/21 Dear Doctor, A review of the medical record indicates additional documentation may be needed. Please review below and update the documentation accordingly. Clinical Indicators: Risk Factors/Clinical Indicators/Treatments Per H&P 10/07/21: History of CHF: Chest x-ray showed mild congestion. BNP 165 Please provide further specificity regarding the most likely type and acuity of CHF you are evaluating, treating, or monitoring. Examples include: Type: * Systolic * Diastolic * Combined Systolic/Diastolic * Other ? please specify * Unable to determine Use of terms such as suspected, likely, concern for, or probable (associated with a specific diagnosis that is being evaluated, monitored, or treated as if it exists) are acceptable and can be coded in the inpatient setting, when documented at the time of discharge. Thank you, Iram Arshad RN Extension: [phone] Please use your independent medical judgment in providing your response. THIS QUERY IS PART OF THE PERMANENT MEDICAL RECORD Provider Response: Other Other Diagnosis: acute on chronic systolic heart failure
[2021-10-11] MEDS: Lithium Carbonate 300 MG CAPSULE PO (21:13)
[2021-10-11] MEDS: Famotidine 20 MG TABLET PO (21:14)
[2021-10-11] MEDS: OLANZapine 10 MG TABLET PO (21:14)
[2021-10-11] MEDS: 0.9 % Sodium Chloride Flush 3 ML SYRINGE IVFLUSH (21:14)
[2021-10-12 04:00] VITALS: BP 111/65; PULSE 73; RESP 17; TEMP 36.1; O2SAT 96
[2021-10-12 06:21] LABS: MANUAL DIFF FLAG NO
[2021-10-12 06:25] LABS: Basophils Percent Auto 0.3 % (0-2); Eosinophils Absolute Auto 0.2 X10*3/uL (0.0-0.4); Eosinophils Percent Auto 2.4 % (0-4); Hematocrit 42.2 % (42.0-52.0); Hemoglobin 13.9 g/dl (14.0-18.0); Imm Gran Abs Auto 0.07 X10*3/uL (0.00-0.03); Imm Gran Pct Auto 0.9 % (0.0-0.4); Lymphocytes Absolute Auto 1.7 X10*3/uL (1.2-4.9); Mean Corpuscular HGB Conc 32.9 g/dl (31.0-36.0); Mean Corpuscular Hemoglobin 30.1 pg (27.0-33.0); Mean Corpuscular Volume 91.3 fL (80.0-98.0); Mean Platelet Volume 10.1 fL (9.4-12.4); Monocytes Absolute Auto 0.7 X10*3/uL (0.1-1.2); Monocytes Percent Auto 8.7 % (2-11); Neutrophils Absolute Auto 5.3 x10*3/uL (2.0-8.3); Neutrophils Percent Auto 66.7 % (45-73); Platelet Count 155 X10*3/uL (160-400); Red Blood Count 4.62 X10*6/uL (4.60-5.80)
[2021-10-12 06:50] LABS: Alanine Aminotransferase 14 U/L (0-40); Albumin Level 2.9 g/dL (3.5-5.0); Alkaline Phosphatase 61 U/L (39-117); Anion Gap 6 (12-20); Aspartate Amino Transferase 7 U/L (5-37); Bilirubin Total 0.7 mg/dL (0.0-1.0); Blood Urea Nitrogen 3 mg/dL (9-16); Calcium 8.3 mg/dL (8.4-10.2); Carbon Dioxide 28 mmol/L (22-29); Chloride 108 mmol/L (96-108); Creatinine Clr Calc Pharmacy 138.5; Estimated Glomerular Filt Rate > 60; Glucose Fasting 102 mg/dL (60-99); Sodium 138 mmol/L (135-145); Total Protein 6.2 g/dL (6.5-8.0)
[2021-10-12 07:35] VITALS: BP 138/82; PULSE 76; RESP 18; TEMP 36.2; O2SAT 98
[2021-10-12] MEDS: LORazepam 0.5 MG TABLET PO (09:24)
[2021-10-12] MEDS: Dabigatran Etexilate Mesylate 150 MG CAPSULE PO (09:26)
[2021-10-12] MEDS: Metoprolol Succinate ER 50 MG TAB.ER.24H PO (09:26)
[2021-10-12] MEDS: Gabapentin 300 MG CAPSULE PO (09:26)
[2021-10-12] MEDS: Lithium Carbonate 300 MG CAPSULE 600 MG PO (09:26)
[2021-10-12] MEDS: 0.9 % Sodium Chloride Flush 3 ML SYRINGE IVFLUSH (09:36)
--- NOTE | 2021-10-12 11:38 | HO.PM.IMPN ---
Subjective Subjective Date of Service: 10/12/21 Interval History: no acute issues overall Review of Systems denies chest pains and shortness of breath Denies nausea vomiting diarrhea Complains of mild left leg pain that has improved Physical Exam Vital Signs: Vital Signs: Last Vital Signs Temp 97.2 F 10/12/21 07:35 Pulse 76 10/12/21 07:35 Resp 18 10/12/21 07:35 BP 138/82 10/12/21 07:35 Pulse Ox 98 10/12/21 07:35 BMI result Body Mass Index 34.7 Const: Other: awake alert no acute distress Resp: Other: clear to auscultation bilaterally no rales rhonchi wheezes Cardio: Other: no S4; positive S1-S2; no S3 murmurs rubs or gallops GI: Other: soft positive bowel sounds x4 quadrants. No rebound or guarding Extrem: Other: Arely /erythematous region left inner thigh from groin fold to inner aspect of knee Objective Data Active Medications Acetaminophen (Acetaminophen 325 Mg Tablet) 650 mg PO Q6H PRN PRN Reason: Pain, Mild (Pain Scale 1-3) Acetaminophen (Acetaminophen Supp 650 Mg Supp.Rect) 650 mg [place] Q6H PRN PRN Reason: Fever Last Admin: 10/08/21 12:32 Dose: 650 mg Documented by: VITALY Dabigatran (Dabigatran Etexilate Mesylate 150 Mg Capsule) 150 mg PO BID [facility] Last Admin: 10/12/21 09:26 Dose: 150 mg Documented by: BETSY Famotidine (Famotidine 20 Mg Tablet) 20 mg PO BEDTIME [facility] Last Admin: 10/11/21 21:14 Dose: 20 mg Documented by: RENETTA Gabapentin (Gabapentin 300 Mg Capsule) 300 mg PO TID [facility] Last Admin: 10/12/21 09:26 Dose: 300 mg Documented by: BETSY Penicillin G Potassium 4,000, (000 unit/ Sodium Chloride) 108 mls @ 108 mls/hr IV Q4H [facility] Last Infusion: 10/12/21 11:04 Dose: 0 mls/hr Documented by: BETSY [place] Carbonate ([place] Carbonate 300 Mg Capsule) 300 mg PO BEDTIME [facility] Last Admin: 10/11/21 21:13 Dose: 300 mg Documented by: RENETTA [place] Carbonate ([place] Carbonate 300 Mg Capsule) 600 mg PO DAILY [facility] Last Admin: 10/12/21 09:26 Dose: 600 mg Documented by: BETSY Lorazepam (Lorazepam 0.5 Mg Tablet) 0.5 mg PO BID [facility] Last Admin: 10/12/21 09:24 Dose: 0.5 mg Documented by: BETSY Melatonin (Melatonin 3 Mg Tablet) 6 mg PO BEDTIME PRN PRN Reason: Insomnia Last Admin: 10/08/21 22:17 Dose: 6 mg Documented by: WIN-PARTONJA Metoprolol Succinate (Metoprolol Succinate Er 50 Mg Tab.Er.24h) 50 mg PO DAILY [facility]; Protocol Last Admin: 10/12/21 09:26 Dose: 50 mg Documented by: BETSY Olanzapine (Olanzapine 10 Mg Tablet) 10 mg PO BEDTIME [facility] Last Admin: 10/11/21 21:14 Dose: 10 mg Documented by: RENETTA Pharmacy Consult (Consult Rx Perform Med Rec) 1 each MISCELLANE ONCE PRN PRN Reason: Consult order Pharmacy Consult (Consult Rx Vancomycin Dosing) 1 each MISCELLANE DAILY PRN PRN Reason: Consult order Pharmacy Consult (Consult Rx Vancomycin Dosing) 1 each MISCELLANE DAILY PRN PRN Reason: Consult order Polyethylene Glycol (Polyethylene Glycol 3350 17 Gm Powd.Pack) 17 gm PO BID [facility] Last Admin: 10/12/21 09:36 Dose: Not Given Documented by: BETSY Non-Admin Reason: loose stool Senna (Sennosides 8.6 Mg Tablet) 17.2 mg PO BEDTIME PRN PRN Reason: Constipation Sodium Chloride (0.9 % Sodium Chloride Flush 3 Ml Syringe) 3 ml IVFLUSH QSHIFT [facility] Last Admin: 10/12/21 09:36 Dose: 3 ml Documented by: BETSY Labs CBC & Chem 7: 10/12/21 06:04 10/12/21 06:04 Labs: Laboratory Results - last 24 hr 10/12/21 10/12/21 06:04 06:04 MCV 91.3 MCH 30.1 MCHC 32.9 RDW 13.0 Plt Count 155 L MPV 10.1 Immature Gran % (Auto) 0.9 H Neut % (Auto) 66.7 Lymph % (Auto) 21.0 [place] % (Auto) 8.7 Eos % (Auto) 2.4 Baso % (Auto) 0.3 Lymph # (Auto) 1.7 [place] # (Auto) 0.7 Eos # (Auto) 0.2 Baso # (Auto) 0.0 Abs Immat Gran (auto) 0.07 H Absolute Neuts (auto) 5.3 Absolute Nucleated RBC 0.000 Nucleated RBC % (auto) 0.0 Anion Gap 6 L Estim Creat Clear Calc 138.5 Estimated GFR > 60 Fasting Glucose 102 H Calcium 8.3 L Total Bilirubin 0.7 AST 7 D ALT 14 Alkaline Phosphatase 61 Total Protein 6.2 L Albumin 2.9 L Microbiology Microbiology Results: Microbiology 10/09/21 08:57 Blood Culture - Preliminary Blood - Venous No growth after 48 hours. 10/09/21 08:57 Blood Culture - Preliminary Blood - Venous No growth after 48 hours. Assessment and Plan (1) Afib: Status: Acute (2) Cellulitis: Status: Acute Assessment and Plan: ? 70-year-old male with a past medical history of hypertension, CAD, CHF, chronic AFib on Pradaxa, vascular dementia with behavior disorder, bipolar, depression with psychosis, anxiety, history of right MCA stroke in 2013, history of alcohol abuse; presented to the hospital with a chief complaint of altered mental status/fever/lethargy.? Initially septic but has resolved with treatments Altered mental status Toxic metabolic encephalopathy likely from sepsis.? Patient has baseline dementia.? He seems to be back to his baseline 1.Cellulitis with S[place] bacteremiaa Improved. Complete course of oral doxycycline. . . Fourteen days 2.Chronic AFib ? Rate controlled.? Continue BB/Pradaxa 4.Psychosis/dementia with behavioral disturbance:? Continue lithium, Ativan, olanzapine DVT prophylaxis:? Patient on Pradaxa Code status: DNI only.? Attempt resuscitation Quality Stroke Does the patient have a stroke diagnosis?: No VTE Prior VTE?: No VTE Risk Level:: Medical - moderate - high VTE Device Contraindication: Treatment Not Indicated VTE Drug Contraindication: N/A - Med Ordered
[2021-10-12 11:44] VITALS: BP 125/80; PULSE 73; RESP 18; TEMP 36.1; O2SAT 97
--- NOTE | 2021-10-12 12:14 | PM.DS ---
DS: Providers Provider Date of Service: 10/12/21 Date of admission: 10/07/21 21:27 Primary care physician: Isabelle Torres MD Consults: 10/08/21 14:21 Consult to Infectious Diseases Routine Consulting Provider: Nikki Guevara Reason for consultation: Bacteremia Has provider been notified: No DS: Diagnosis Discharge Diagnosis (1) Afib: Status: Acute (2) Cellulitis: Status: Acute DS: Summary Hospital Course Hospital Course: 70-year-old male with a past medical history of hypertension, CAD, CHF, chronic AFib on Pradaxa, vascular dementia with behavior disorder, bipolar, depression with psychosis, anxiety, history of right MCA stroke in 2013, history of alcohol abuse; presented to the hospital with a chief complaint of altered mental status/fever/lethargy.? Hospital Course ER course: Per ER team patient noted to have temperature of 103? F; tachycardic, lactic acidosis, soft blood pressures; concern for severe sepsis; exam noted to have left thigh cellulitis; given IV fluids at 30 mL per kg; given IV antibiotics; chest x-ray showed no acute findings; UA showed microscopic hematuria.? Admitted to the hospital for further management Hospital Course Admitted to [facility] and consulted to Infectious Disease. blood cultures subsequently grew out group a strep and patient was started on clindamycin. Subsequent sensitivities revealed clindamycin resistance and he was switched to penicillin. He continued to improve, and ID recommended a 10 of 14 day course of oral doxycycline. He is afebrile white count is stable and he will be discharged to SNF to complete his treatment Time Spent with Patient Time attestation: Total time spent providing and/or coordinating discharge services: Discharge coordination time: Greater than 30 minutes Quality: Stroke Does the patient have a stroke diagnosis?: No Physical Exam Vital Signs: Vital Signs: Last Vital Signs Temp 96.9 F 10/12/21 11:44 Pulse 73 10/12/21 11:44 Resp 18 10/12/21 11:44 BP 125/80 10/12/21 11:44 Pulse Ox 97 10/12/21 11:44 BMI result Body Mass Index 34.7 Const: Other: no acute issues Resp: Other: clear but diminished no rales rhonchi wheezes Cardio: Other: irregularly irregular no S4; positive S1-S2; no S3 murmurs rubs or gallops Extrem: Other: erythematous region left inner thigh down to left mid calf which has improved. ( residual erythema after strep infection not unexpected ) DS: Data Data Completed and Pending Labs on day of discharge: Laboratory Results - last 24 hr 10/12/21 10/12/21 06:04 06:04 WBC 8.0 RBC 4.62 Hgb 13.9 L Hct 42.2 MCV 91.3 MCH 30.1 MCHC 32.9 RDW 13.0 Plt Count 155 L MPV 10.1 Immature Gran % (Auto) 0.9 H Neut % (Auto) 66.7 Lymph % (Auto) 21.0 Kleberg % (Auto) 8.7 Eos % (Auto) 2.4 Baso % (Auto) 0.3 Lymph # (Auto) 1.7 Kleberg # (Auto) 0.7 Eos # (Auto) 0.2 Baso # (Auto) 0.0 Abs Immat Gran (auto) 0.07 H Absolute Neuts (auto) 5.3 Absolute Nucleated RBC 0.000 Nucleated RBC % (auto) 0.0 Sodium 138 Potassium 4.0 Chloride 108 Carbon Dioxide 28 Anion Gap 6 L BUN 3 L Creatinine 0.68 Estim Creat Clear Calc 138.5 Estimated GFR > 60 Fasting Glucose 102 H Calcium 8.3 L Total Bilirubin 0.7 AST 7 D ALT 14 Alkaline Phosphatase 61 Total Protein 6.2 L Albumin 2.9 L Preliminary micro results at discharge 10/09/21 08:57 Blood Culture - Preliminary Blood - Venous No growth after 48 hours. 10/09/21 08:57 Blood Culture - Preliminary Blood - Venous No growth after 48 hours. Discharge Plan Discharge Patient Disposition: Xfer Inpatient Rehab Fac Discharge Diagnosis: Strep A cellulitis Referrals: Isabelle Torres MD [Primary Care Provider] - 1 Week Discharge Medications: New doxycycline hyclate 100 mg tablet 100 mg PO BID Qty: 20 RF: 0 Continued sennosides [senna] 8.6 mg Tablet 17.2 mg PO BEDTIME RF: 0 metoprolol succinate 50 mg Tablet Extended Release 24 Hr 50 mg PO DAILY RF: 0 olanzapine 10 mg Tablet 10 mg PO BEDTIME RF: 0 acetaminophen 500 mg Tablet 1,000 mg PO BID RF: 0 famotidine 20 mg Tablet 20 mg PO BEDTIME RF: 0 lorazepam 0.5 mg tablet 1 tab PO BID RF: 0 lithium carbonate 300 mg Capsule 600 mg PO DAILY RF: 0 lithium carbonate 300 mg Capsule 300 mg PO BEDTIME RF: 0 simvastatin 5 mg Tablet 5 mg PO BEDTIME RF: 0 gabapentin 300 mg Capsule 300 mg PO TID RF: 0 polyethylene glycol 3350 [Miralax] 17 gram/dose Powder 17 g PO BID RF: 0 Pradaxa 150 mg Capsule 150 mg PO BID RF: 0 Discharge Orders: Discharge Order (Routine); Ordered 10/12/21 Ordered By: Ramon Boss Diet: advance to usual diet Activity on Discharge: As tolerated Stand Alone Forms: Patient Portal Discharge page Care Plan Goals: complete course of oral antibiotics Health Concerns: further recommendations as per receiving MD Plan of Treatment: maintain highest level of function Assessment: as per discharge summary
--- NOTE | 2021-10-12 12:32 | MHC.CM.PN ---
pts son arnaud notified [facility] at [facility]
[2021-10-12 13:44] LABS: Influenza A PCR NEGATIVE (Negative); Influenza B PCR NEGATIVE (Negative); Resp Syncy Virus RNA Qual PCR NEGATIVE (Negative); SARS COV2 PCR INHOUSE NEGATIVE (Negative)
--- NOTE | 2021-10-12 15:49 | MHC.SL.SWA ---
Speech Pathologist Impression: Oral Phase Dysphagia Risk of Aspiration Due to: Reduced Cognition Dysphasia Diet Status: No Change Liquid Consistency and Strategies for Safe Swallow: Liquid Intake Recommendation: Thin Liquid Intake Strategies: Small Sips Solid Food Consistency: Dietary Recommendations: Grnd/Mech Altered (NDD2) Oral Medication Intake: Whole with Puree Compensatory Strategies and Precautions to be Taken for Safe Swallow: Sitting Upright (90 deg) Double Swallow Small Bites and Sips Alternate Liquids/Solids Rate of Ingestion Change Avoid Specific Foods Supervision While Eating and Drinking for Safe Swallow: Total Supervision (1:1) Foods to Avoid: Tough, dry, sticky foods Swallowing Recommended Treatments: Compens. Strategy Educat. Recommendation for Speech: Inpatient Speech Therapy Electrician Substation Clinican/Clinical Fellow: No Supervisory Statement: I have reviewed and agree with the student/clinical fellow's documentation: N/A Speech Language Pathologist: Chelsi Cook M.A., CCC-PASSEMENTERIE WORKER
== END 2021-10-12 15:57 | DRG 871 ==
LOC: HO.ED 21:08 → HO.EDOVER 21:34 → HO.S3 10-09 13:42
PROVIDERS: Internal Medicine; Admitting Provider Hospitalist; Emergency Provider Emergency Medicine; PCP Internal Medicine; Visit Provider Hospitalist
DX: A40.0 Sepsis due to streptococcus, group A (principal); G92.8 Other toxic encephalopathy; I50.23 Acute on chronic systolic (congestive) heart failure; L03.116 Cellulitis of left lower limb; I48.20 Chronic atrial fibrillation, unspecified; F01.51 Vascular dementia, unspecified severity, with behavioral disturbance; R65.20 Severe sepsis without septic shock; F31.9 Bipolar disorder, unspecified; R31.29 Other microscopic hematuria; I11.0 Hypertensive heart disease with heart failure; I69.919 Unspecified symptoms and signs involving cognitive functions following unspecified cerebrovascular disease; F10.11 Alcohol abuse, in remission; I25.10 Atherosclerotic heart disease of native coronary artery without angina pectoris; Z20.822 Contact with and (suspected) exposure to COVID-19; Z87.891 Personal history of nicotine dependence; Z79.01 Long term (current) use of anticoagulants; Z79.899 Other long term (current) drug therapy
CPT/HCPCS: 0241U; 36415; 70450; 71045; 76705; 76882; 80048; 80053; 80076; 80202; 81001; 82565; 82947; 83605; 83690; 83735; 83880; 84484; 85025; 85610; 85730; 87040; 87147; 87186; 87205; 87635; 92526; 92610; 93005; 93306; 99285; J0696; J2543; J3370